=== PATIENT | female | born 1960 | race Two or more races ===

== ENCOUNTER 2017-09-11 12:27 | Emergency (ER) | payer BC ==
[2017-09-11 12:31] VITALS: BMI 23.1
[2017-09-11 12:37] VITALS: BP 157/92; RESP 17; TEMP 99.1; O2SAT 98
--- NOTE | 2017-09-11 13:38 | ED PDOC ---
HPI: General Adult Time Seen by Provider: 09/11/17 12:31 Chief Complaint (Nursing): Flu-like Symptoms Chief Complaint (Provider): Flu-like Symptoms History Per: Patient History/Exam Limitations: no limitations Onset/Duration Of Symptoms: Days (x 1) Additional Complaint(s): Roxy is a 57 y/o female with a history of asthma who presents to the ED complaining of headache, body aches, sore throat, and chills since last night. Patient also complains of mild nausea but denies vomiting or diarrhea. She denies any sick contacts and states she got the flu shot this year. PMD: None Provided Past Medical History Reviewed: Historical Data, Nursing Documentation, Vital Signs Vital Signs: Last Vital Signs Temp 99.1 F 09/11/17 12:36 Pulse 99 H 09/11/17 12:36 Resp 17 09/11/17 12:36 BP 157/92 H 09/11/17 12:36 Pulse Ox 98 09/11/17 12:36 - Medical History PMH: Asthma, Diverticulitis, Gastritis, Hepatitis (autoimmune), Hiatal Hernia, Hyperthyroidism, Hypothyroidism, Pancreatitis Denies: HIV, Chronic Kidney Disease - Surgical History Surgical History: Cholecystectomy (laparoscopic cholesystectomy), Tonsillectomy - Family History Family History: States: Unknown Family Hx - Immunization History Hx Tetanus Toxoid Vaccination: Yes - Home Medications Home Medications: Ambulatory Orders Medication Instructions Recorded Montelukast Sodium [Singulair] 10 mg PO DAILY 08/25/14 Levothyroxine [Synthroid] 75 mcg PO DAILY 08/21/15 Albuterol 0.083% [Albuterol 0.083% 3 ml IH TID PRN 08/14/16 Inhal Ana (2.5 mg/3 ml) UD] Albuterol Sulfate [Proair 2 puff IH TID PRN 08/14/16 Respiclick] Dexlansoprazole [Dexilant] 60 mg PO DAILY 08/14/16 Fluticasone/Vilanterol [Breo 1 puff IH DAILY 08/14/16 Ellipta 200-25 Mcg INH] Icosapent Ethyl [Vascepa] 2 gm PO DAILY 08/14/16 Cefuroxime Axetil [Ceftin] 300 mg PO TID #0 tablet 08/19/16 Methylprednisolone [Medrol Dose 4 mg PO DAILY #21 mg 08/19/16 Pack (21 tabs)] Promethazine/Codeine 10 ml PO Q6 PRN #0 udc 08/19/16 [Phenergan/Codeine Oral Syrup] Sitagliptin Phos/Metformin HCl 1 each PO BID #0 tablet 08/19/16 [Janumet 50-1,000 mg Tablet] Theophylline Anhydrous [Mu-24] 200 mg PO DAILY #0 cap.er.24h 08/19/16 Ibuprofen [Motrin Tab] 400 mg PO Q6 PRN #12 tab 09/11/17 - Allergies Allergies/Adverse Reactions: Allergies Allergy/AdvReac Type Severity Reaction Status Date / Time ciprofloxacin [From Cipro] Allergy URTICARIA Verified 08/14/16 12:44 ciprofloxacin HCl Allergy URTICARIA Verified 08/14/16 12:44 [From Cipro] latex Allergy SHORTNESS Verified 08/14/16 12:44 OF BREATH Review of Systems ROS Statement: Except As Marked, All Systems Reviewed And Found Negative Constitutional: Positive for: Chills, Malaise ENT: Positive for: Throat Pain Gastrointestinal: Positive for: Nausea. Negative for: Vomiting, Diarrhea Neurological: Positive for: Headache Physical Exam - Reviewed Nursing Documentation Reviewed: Yes Vital Signs Reviewed: Yes - Physical Exam Appears: Positive for: Well, Non-toxic, No Acute Distress Head Exam: Positive for: ATRAUMATIC, NORMAL INSPECTION, NORMOCEPHALIC Skin: Positive for: Normal Color, Warm, Dry Eye Exam: Positive for: Normal appearance, EOMI, PERRL. Negative for: Nystagmus ENT: Positive for: Other (nasal turbinates are boggy and erythematous) Neck: Positive for: Normal, Painless ROM, Supple Cardiovascular/Chest: Positive for: Regular Rate, Rhythm. Negative for: Murmur Respiratory: Positive for: Normal Breath Sounds. Negative for: Respiratory Distress Gastrointestinal/Abdominal: Positive for: Normal Exam, Bowel Sounds, Soft. Negative for: Tenderness Back: Positive for: Normal Inspection Extremity: Positive for: Normal ROM. Negative for: Pedal Edema, Deformity Neurologic/Psych: Positive for: Alert, Oriented. Negative for: Motor/Sensory Deficits - ECG O2 Sat by Pulse Oximetry: 98 (RA) Pulse Ox Interpretation: Normal Medical Decision Making Medical Decision Making: Time: 12:31 Initial Impression: Flu-like symptoms Initial Plan: --Influenza A B --Tylenol Time: 1:30 --Flu swab is negative --Patient is stable for discharge home and will return if symptoms worsen Scribe Attestation: Documented by Ector Koo, acting as a scribe for Geovanny Reyes III, MD Provider Scribe Attestation: All medical record entries made by the Scribe were at my direction and personally dictated by me. I have reviewed the chart and agree that the record accurately reflects my personal performance of the history, physical exam, medical decision making, and the department course for this patient. I have also personally directed, reviewed, and agree with the discharge instructions and disposition. Disposition - Clinical Impression Clinical Impression: Influenza-like symptoms - Patient ED Disposition Is Patient to be Admitted: No Counseled Patient/Family Regarding: Studies Performed, Diagnosis, Need For Followup, Rx Given - Disposition Disposition: Routine/Home Disposition Time: 01:30 Condition: STABLE Additional Instructions: Drink plenty of fluids. Prescriptions: Ibuprofen [Motrin Tab] 400 mg PO Q6 PRN #12 tab PRN Reason: Fever >100.4 F Instructions: Cold Symptoms (ED) Forms: [employer] ([place]), [facility] ED School/Work Excuse
[2017-09-11 19:01] VITALS: PULSE 88
== END 2017-09-11 13:40 | disposition home or self-care (01) ==
LOC: H.ER 12:27
DX: R50.9 Fever, unspecified (principal); J00 Acute nasopharyngitis [common cold]

== ENCOUNTER 2018-02-24 16:12 | Emergency (ER) | payer OTHER ==
[2018-02-24 16:12] VITALS: BMI 23.1
[2018-02-24 16:19] VITALS: TEMP 98.3
[2018-02-24] MEDS ORDERED: Tdap Vaccine 0.5 ml Vial (10-64 yrs) IM ONE ×2 (16:40→16:52)
--- NOTE | 2018-02-24 17:35 | ED PDOC ---
HPI: Wound Care - HPI Time Seen by Provider: 02/24/18 16:31 Chief Complaint (Nursing): Needle Stick Chief Complaint (Provider): Needle Stick History Per: Patient Exam Limitations: no limitations Onset/Duration Of Symptoms: Mins Location Of Injury: Left: Hand (2nd finger) Additional Complaint(s): 57 y/o female presents to ED s/p needle stick. 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 Immediately following she bled out the wound, irrigated it, and applied dressing prior to evaluation. PMD: Mary Hair Past Medical History Reviewed: Historical Data, Nursing Documentation, Vital Signs Vital Signs: Last Vital Signs Temp 98.3 F 02/24/18 16:16 Pulse 94 H 02/24/18 16:16 Resp 18 02/24/18 16:16 BP 139/91 H 02/24/18 16:16 Pulse Ox 99 02/24/18 16:16 - Medical History PMH: Asthma, Diverticulitis, Gastritis, Hepatitis (autoimmune), Hiatal Hernia, Hyperthyroidism, Hypothyroidism, Pancreatitis Denies: HIV, Chronic Kidney Disease - Surgical History Surgical History: Cholecystectomy (laparoscopic cholesystectomy), Tonsillectomy - Family History Family History: States: Unknown Family Hx - Social History Current smoker - smoking cessation education provided: No Ex-Smoker (has not smoked in the last 12 months): No Alcohol: None Drugs: Denies - Immunization History Hx Tetanus Toxoid Vaccination: No - Home Medications Home Medications: Ambulatory Orders Medication Instructions Recorded Montelukast Sodium [Singulair] 10 mg PO DAILY 08/25/14 Levothyroxine [Synthroid] 75 mcg PO DAILY 08/21/15 Albuterol 0.083% [Albuterol 0.083% 3 ml IH TID PRN 08/14/16 Inhal Ana (2.5 mg/3 ml) UD] Albuterol Sulfate [Proair 2 puff IH TID PRN 08/14/16 Respiclick] Dexlansoprazole [Dexilant] 60 mg PO DAILY 08/14/16 Fluticasone/Vilanterol [Breo 1 puff IH DAILY 08/14/16 Ellipta 200-25 Mcg INH] Icosapent Ethyl [Vascepa] 2 gm PO DAILY 08/14/16 Cefuroxime Axetil [Ceftin] 300 mg PO TID #0 tablet 08/19/16 Methylprednisolone [Medrol Dose 4 mg PO DAILY #21 mg 08/19/16 Pack (21 tabs)] Promethazine/Codeine 10 ml PO Q6 PRN #0 udc 08/19/16 [Phenergan/Codeine Oral Syrup] Sitagliptin Phos/Metformin HCl 1 each PO BID #0 tablet 08/19/16 [Janumet 50-1,000 mg Tablet] Theophylline Anhydrous [Mu-24] 200 mg PO DAILY #0 cap.er.24h 08/19/16 Ibuprofen [Motrin Tab] 400 mg PO Q6 PRN #12 tab 09/11/17 - Allergies Allergies/Adverse Reactions: Allergies Allergy/AdvReac Type Severity Reaction Status Date / Time ciprofloxacin [From Cipro] Allergy URTICARIA Verified 08/14/16 12:44 ciprofloxacin HCl Allergy URTICARIA Verified 08/14/16 12:44 [From Cipro] latex Allergy SHORTNESS Verified 08/14/16 12:44 OF BREATH Review of Systems ROS Statement: Except As Marked, All Systems Reviewed And Found Negative Skin: Positive for: Other (needle stick to left 2nd index finger) Physical Exam - Reviewed Nursing Documentation Reviewed: Yes Vital Signs Reviewed: Yes - Physical Exam Appears: Positive for: Non-toxic, No Acute Distress Head Exam: Positive for: ATRAUMATIC, NORMAL INSPECTION, NORMOCEPHALIC Skin: Negative for: Normal Color (puncture to left anterior second digit, no active bleeding, needle stick) Eye Exam: Positive for: EOMI, Normal appearance, PERRL Neurologic/Psych: Positive for: Alert, Oriented (x3) - ECG O2 Sat by Pulse Oximetry: 99 (RA) Pulse Ox Interpretation: Normal Medical Decision Making Medical Decision Making: Time: 16:16 Impression: Needle stick Initial Plan: * At the source HIV and hepatitis testing * Tetanus Shot Scribe Attestation: Documented by Roxane Joseph acting as a scribe Rae Parra MD. MD [place] Attestation: All medical record entries made by the Scribe were at my direction and personally dictated by me. I have reviewed the chart and agree that the record accurately reflects my personal performance of the history, physical exam, medical decision making, and the department course for this patient. I have also personally directed, reviewed, and agree with the discharge instructions and disposition. Disposition - Disposition
[2018-02-24 17:53] VITALS: PULSE 88; RESP 16; O2SAT 98
[2018-02-24 18:36] VITALS: BP 133/80
== END 2018-02-24 17:53 | disposition home or self-care (01) ==
LOC: H.ER 16:12
DX: S61.231A Puncture wound without foreign body of left index finger without damage to nail, initial encounter (principal); X58.XXXA Exposure to other specified factors, initial encounter; Y99.0 Civilian activity done for income or pay; Z87.891 Personal history of nicotine dependence; J45.909 Unspecified asthma, uncomplicated; E03.9 Hypothyroidism, unspecified; E05.90 Thyrotoxicosis, unspecified without thyrotoxic crisis or storm; Z23 Encounter for immunization; Z04.8 Encounter for examination and observation for other specified reasons

== ENCOUNTER 2018-07-11 21:50 | Emergency (ER) | payer BC, OTHER ==
[2018-07-11 21:51] VITALS: BMI 23.1
[2018-07-11 21:58] VITALS: O2SAT 100
[2018-07-11] MEDS ORDERED: DiphenhydrAMINE 50 mg/ml Inj IVP STA (22:00)
[2018-07-11] MEDS ORDERED: Sodium Chloride 0.9% 1,000 ML IV STA (22:01)
[2018-07-11] MEDS ORDERED: Promethazine 25 MG in Sodium Chloride 0.9% 50 ML IVPB STA (22:05)
--- NOTE | 2018-07-11 22:13 | ED PDOC ---
HPI: Headache Chief Complaint (Provider): MCKEON History Per: Patient History/Exam Limitations: no limitations Additional Complaint(s): Pt reports gradual onset posterior MCKEON X 1.5 hours, associated with nausea and 3 episodes of vomiting, + photophobia. Feels like typical migraine. Denies fever, neck stiffness, visual changes. - Risk Factors SAH Risk Factors: Neg: Sudden Onset Of Pain, Worst Headache Of Life <FidelLenchoa Suzie - Last Filed: 07/11/18 22:11> <Ho Cunha - Last Filed: 07/12/18 06:26> Time Seen by Provider: 07/11/18 21:59 Chief Complaint (Nursing): Headache Past Medical History Reviewed: Nursing Documentation, Vital Signs Vital Signs: Last Vital Signs Temp 98.7 F 07/11/18 21:55 Pulse 85 07/11/18 21:55 Resp 16 07/11/18 21:55 BP 150/78 07/11/18 21:55 Pulse Ox 100 07/11/18 21:55 - Medical History PMH: Asthma, Diverticulitis, Gastritis, Hepatitis (autoimmune), Hiatal Hernia, Hyperthyroidism, Hypothyroidism, Pancreatitis Denies: HIV, Chronic Kidney Disease - Surgical History Surgical History: Cholecystectomy (laparoscopic cholesystectomy), Tonsillectomy - Family History Family History: States: Unknown Family Hx - Social History Current smoker - smoking cessation education provided: No Alcohol: None - Immunization History Hx Tetanus Toxoid Vaccination: No <Parra,Rae Suzie - Last Filed: 07/11/18 22:11> Vital Signs: Last Vital Signs Temp 98.7 F 07/11/18 21:55 Pulse 58 L 07/12/18 05:25 Resp 18 07/12/18 05:25 BP 139/71 07/12/18 05:25 Pulse Ox 100 07/12/18 05:25 <Ho Cunha - Last Filed: 07/12/18 06:26> - Home Medications Home Medications: Ambulatory Orders Medication Instructions Recorded Montelukast Sodium [Singulair] 10 mg PO DAILY 08/25/14 Levothyroxine [Synthroid] 75 mcg PO DAILY 08/21/15 Albuterol 0.083% [Albuterol 0.083% 3 ml IH TID PRN 08/14/16 Inhal Ana (2.5 mg/3 ml) UD] Albuterol Sulfate [Proair 2 puff IH TID PRN 08/14/16 Respiclick] Dexlansoprazole [Dexilant] 60 mg PO DAILY 08/14/16 Fluticasone/Vilanterol [Breo 1 puff IH DAILY 08/14/16 Ellipta 200-25 Mcg INH] Icosapent Ethyl [Vascepa] 2 gm PO DAILY 08/14/16 Cefuroxime Axetil [Ceftin] 300 mg PO TID #0 tablet 08/19/16 Methylprednisolone [Medrol Dose 4 mg PO DAILY #21 mg 08/19/16 Pack (21 tabs)] Promethazine/Codeine 10 ml PO Q6 PRN #0 udc 08/19/16 [Phenergan/Codeine Oral Syrup] Sitagliptin Phos/Metformin HCl 1 each PO BID #0 tablet 08/19/16 [Janumet 50-1,000 mg Tablet] Theophylline Anhydrous [Mu-24] 200 mg PO DAILY #0 cap.er.24h 08/19/16 Ibuprofen [Motrin Tab] 400 mg PO Q6 PRN #12 tab 09/11/17 - Allergies Allergies/Adverse Reactions: Allergies Allergy/AdvReac Type Severity Reaction Status Date / Time ciprofloxacin [From Cipro] Allergy URTICARIA Verified 07/11/18 21:54 ciprofloxacin HCl Allergy URTICARIA Verified 07/11/18 21:54 [From Cipro] latex Allergy SHORTNESS Verified 07/11/18 21:54 OF BREATH Review of Systems ROS Statement: Except As Marked, All Systems Reviewed And Found Negative Eyes: Positive for: Other (Photophobia) Gastrointestinal: Positive for: Nausea, Vomiting Neurological: Positive for: Headache <Rae Parra F - Last Filed: 07/11/18 22:11> Physical Exam - Reviewed Nursing Documentation Reviewed: Yes Vital Signs Reviewed: Yes - Physical Exam Appears: Positive for: Uncomfortable Head Exam: Positive for: ATRAUMATIC, NORMAL INSPECTION Skin: Positive for: Normal Color, Warm, Dry Eye Exam: Positive for: Normal appearance, EOMI, PERRL Neck: Positive for: Normal, Painless ROM, Supple Cardiovascular/Chest: Positive for: Regular Rate, Rhythm Respiratory: Positive for: Normal Breath Sounds Neurologic/Psych: Positive for: Alert, instructional technology teacher II-XII, Oriented, Gait (Steady). Negative for: Motor/Sensory Deficits, Aphasia, Facial Droop <Rae Parra - Last Filed: 07/11/18 22:11> - ECG O2 Sat by Pulse Oximetry: 100 <Rae Parra - Last Filed: 07/11/18 22:11> - Laboratory Results Result Diagrams: 07/11/18 22:05 07/11/18 22:05 - Progress Re-evaluation Time: 06:26 Condition: Re-examined, Improved <Ho Cunha - Last Filed: 07/12/18 06:26> Medical Decision Making Medical Decision Makin yo female with MCKEON. - labs - CT head - IVF - Phenergan - Benadryl <Rae Parra - Last Filed: 07/11/18 22:11> Disposition <Rae Parra - Last Filed: 07/11/18 22:11> - Patient ED Disposition Is Patient to be Admitted: No Doctor Will See Patient In The: Office Counseled Patient/Family Regarding: Studies Performed, Diagnosis, Need For Followup <Ho Cunha - Last Filed: 07/12/18 06:26> - Clinical Impression Clinical Impression: Headache - Disposition Forms: [employer] ([place])
[2018-07-11] MEDS ORDERED: DiphenhydrAMINE 50 mg/ml Inj ONE (22:15)
[2018-07-11 22:20] LABS: BASO # 0.1 K/uL (0.0-0.2); BASO % 0.8 % (0.0-2.0); EOS # 0.3 K/uL (0.0-0.7); EOS % 3.9 % (0.0-4.0); HEMOGLOBIN 13.5 g/dL (12.0-16.0); LYMPH # 4.7 K/uL (1.0-4.3); LYMPH % 62.5 % (20.0-40.0); MEAN CELL VOLUME 89.1 fl (81.0-99.0); MEAN CORPUSCULAR HEMOGLOBIN 29.6 pg (27.0-31.0); MEAN CORPUSCULAR HGB CONC 33.2 g/dL (33.0-37.0); MEAN PLATELET VOLUME 8.6 fl (7.2-11.7); MONO # 0.6 K/uL (0.0-0.8); MONO % 7.5 % (0.0-10.0); NEUT # 1.9 K/uL (1.8-7.0); NEUT % 25.3 % (50.0-75.0); NRBC % 0.1 % (0.0-0.0); RBC 4.56 Mil/uL (3.80-5.20); RED CELL DISTRIBUTION WIDTH 13.9 % (11.5-14.5); WHITE BLOOD COUNT 7.5 K/uL (4.8-10.8)
[2018-07-11 22:26] LABS: ALB/GLOB RATIO 1.1 (1.0-2.1); ALBUMIN 4.2 g/dL (3.5-5.0); ALT/SGPT 49 U/L (9-52); AST/SGOT 39 U/L (14-36); BLOOD UREA NITROGEN 14 mg/dl (7-17); CALCIUM 9.3 mg/dL (8.4-10.2); GFR NON-AFRICAN AMERICAN > 60
[2018-07-12 05:25] VITALS: RESP 18
--- NOTE | 2018-07-12 06:46 | ED PDOC ---
- Laboratory Results Result Diagrams: 07/11/18 22:05 07/11/18 22:05 - ECG O2 Sat by Pulse Oximetry: 100 - Progress Re-evaluation Time: 03:00 Condition: Re-examined, Improved Medical Decision Making Medical Decision Making: Assumed care from Dr Parra at 0000. Disposition - Clinical Impression Clinical Impression: Headache, Migraine - POA Present On Arrival: None - Disposition Referrals: Perry Hernandez MD [Staff Provider] - Disposition: Routine/Home Disposition Time: 03:00 Condition: IMPROVED Additional Instructions: JAROD CASTILLO, thank you for letting us take care of you today. Your provider was Ho Cunha MD and you were treated for HEADACHE,VOMITING. The emergency medical care you received today was directed at your acute symptoms. If you were prescribed any medication, please fill it and take as directed. It may take several days for your symptoms to resolve. Return to the Emergency Department if your symptoms worsen, do not improve, or if you have any other problems. Please contact your doctor or call one of the physicians/clinics you have been referred to that are listed on the Patient Visit Information form that is included in your discharge packet. Bring any paperwork you were given at discharge with you along with any medications you are taking to your follow up visit. Our treatment cannot replace ongoing medical care by a primary care provider outside of the emergency department. Thank you for allowing the [facility] team to be part of your care today. If you had an X-Ray or CT scan: A Radiologist will review the ED reading if any change in treatment is needed we will contact you. If you had a blood, urine, or wound culture: It will take several days for the results, if any change in treatment is needed we will contact you. If you had an STI test: It will take 48 hours for the results. Please call after 1 week if you have not heard back. Instructions: Headache, Adult
[2018-07-12 06:55] VITALS: BP 139/87; PULSE 73; TEMP 98.6
--- NOTE | 2018-07-12 12:19 | CT ---
Date of service: 07/11/2018 PROCEDURE: CT HEAD WITHOUT CONTRAST. HISTORY: MCKEON COMPARISON: None available. TECHNIQUE: Axial computed tomography images were obtained through the head/brain without intravenous contrast. Radiation dose: Total exam DLP = 732.56 mGy-cm. This CT exam was performed using one or more of the following dose reduction techniques: Automated exposure control, adjustment of the mA and/or kV according to patient size, and/or use of iterative reconstruction technique. FINDINGS: HEMORRHAGE: No intracranial hemorrhage. BRAIN: No mass effect or edema. No atrophy or chronic microvascular ischemic changes. VENTRICLES: Unremarkable. No hydrocephalus. CALVARIUM: Unremarkable. PARANASAL SINUSES: Unremarkable as visualized. No significant inflammatory changes. MASTOID AIR CELLS: Unremarkable as visualized. No inflammatory changes. OTHER FINDINGS: None. IMPRESSION: No evidence of acute intracranial hemorrhage mass effect or midline shift. Preliminary report with concordance findings was submitted by [facility] at 11:13 p.m. on 07/11/2018.
--- NOTE | 2018-07-12 17:00 | CARD ---
APPROVED REPORT Date of service: 07/12/2018 EKG Measurement Heart [id number] <Conclusion> Sinus bradycardia Otherwise normal ECG
== END 2018-07-12 07:01 | disposition home or self-care (01) ==
LOC: H.ER 21:50
DX: R51 Headache (principal)
CPT/HCPCS: 70450; 80053; 85025; 93005; 96374; J1200; J2550; J7030

== ENCOUNTER 2018-08-09 21:52 | Emergency (ER) | payer OTHER ==
[2018-08-09 21:52] VITALS: BMI 23.1
[2018-08-09] MEDS ORDERED: Albuterol-Ipratrop 3 mg / 0.5 (3 ml) UD INH STA (22:04)
[2018-08-09] MEDS ORDERED: Albuterol-Ipratrop 3 mg / 0.5 (3 ml) UD ONE (22:18)
--- NOTE | 2018-08-09 23:30 | ED PDOC ---
HPI: SOB/CHF/COPD Time Seen by Provider: 08/09/18 21:58 Chief Complaint (Nursing): Shortness Of Breath Chief Complaint (Provider): cough and asthma exacerbation History Per: Patient History/Exam Limitations: no limitations Onset/Duration Of Symptoms: Days (x1 week) Current Symptoms Are (Timing): Still Present Associated Symptoms: denies: Fever, Chills Additional Complaint(s): Roxy Lock is a 58 year old female, with a past medical history of cholangitis, Omar's disease and asthma, who presents to the emergency department complaining of cough and asthma exacerbation onset for x1 week. Patient states symptoms started after getting the flu shot. She reports symptoms worsen at night with spams of cough. She denies any fever or chills. No further medical complaints. PMD: Perry Hernandez Past Medical History Reviewed: Historical Data, Nursing Documentation, Vital Signs Vital Signs: Last Vital Signs Temp 97.9 F 08/09/18 21:59 Pulse 86 08/09/18 21:59 Resp 18 08/09/18 22:03 BP 161/88 H 08/09/18 21:59 Pulse Ox 100 08/09/18 21:59 - Medical History PMH: Asthma, Diverticulitis, Gastritis, Hepatitis (autoimmune), Hiatal Hernia, Hyperthyroidism, Hypothyroidism, Pancreatitis Denies: HIV, Chronic Kidney Disease Other PMH: Cholangitis - Surgical History Surgical History: Cholecystectomy (laparoscopic cholesystectomy), Tonsillectomy - Family History Family History: States: Unknown Family Hx - Social History Current smoker - smoking cessation education provided: No Alcohol: None Drugs: Denies - Immunization History Hx Tetanus Toxoid Vaccination: No - Home Medications Home Medications: Ambulatory Orders Medication Instructions Recorded RX: Montelukast Sodium [Singulair] 10 mg PO DAILY 08/25/14 RX: Levothyroxine [Synthroid] 75 mcg PO DAILY 08/21/15 RX: Albuterol 0.083% [Albuterol 3 ml IH TID PRN 08/14/16 0.083% Inhal Ana (2.5 mg/3 ml) UD] RX: Albuterol Sulfate [Proair 2 puff IH TID PRN 08/14/16 Respiclick] RX: Dexlansoprazole [Dexilant] 60 mg PO DAILY 08/14/16 RX: Fluticasone/Vilanterol [Breo 1 puff IH DAILY 08/14/16 Ellipta 200-25 Mcg INH] RX: Icosapent Ethyl [Vascepa] 2 gm PO DAILY 08/14/16 Cefuroxime Axetil [Ceftin] 300 mg PO TID #0 tablet 08/19/16 Methylprednisolone [Medrol Dose 4 mg PO DAILY #21 mg 08/19/16 Pack (21 tabs)] RX: Promethazine/Codeine 10 ml PO Q6 PRN #0 udc 08/19/16 [Phenergan/Codeine Oral Syrup] RX: Theophylline Anhydrous 200 mg PO DAILY #0 cap.er.24h 08/19/16 [Mu-24] Sitagliptin Phos/Metformin HCl 1 each PO BID #0 tablet 08/19/16 [Janumet 50-1,000 mg Tablet] RX: Ibuprofen [Motrin Tab] 400 mg PO Q6 PRN #12 tab 09/11/17 predniSONE [Prednisone] 40 mg PO DAILY #8 tab 08/09/18 - Allergies Allergies/Adverse Reactions: Allergies Allergy/AdvReac Type Severity Reaction Status Date / Time ciprofloxacin [From Cipro] Allergy URTICARIA Verified 07/11/18 21:54 ciprofloxacin HCl Allergy URTICARIA Verified 07/11/18 21:54 [From Cipro] latex Allergy SHORTNESS Verified 07/11/18 21:54 OF BREATH Review of Systems ROS Statement: Except As Marked, All Systems Reviewed And Found Negative Constitutional: Negative for: Fever, Chills Respiratory: Positive for: Cough, Shortness of Breath Physical Exam - Reviewed Nursing Documentation Reviewed: Yes Vital Signs Reviewed: Yes - Physical Exam Appears: Positive for: No Acute Distress Head Exam: Positive for: ATRAUMATIC, NORMAL INSPECTION, NORMOCEPHALIC Skin: Positive for: Normal Color, Warm, Dry Eye Exam: Positive for: Normal appearance, EOMI, PERRL ENT: Positive for: Normal ENT Inspection Neck: Positive for: Normal, Painless ROM Cardiovascular/Chest: Positive for: Regular Rate, Rhythm. Negative for: Murmur Respiratory: Positive for: Normal Breath Sounds. Negative for: Accessory Muscle Use, Wheezing, Respiratory Distress Gastrointestinal/Abdominal: Positive for: Normal Exam, Soft. Negative for: Tenderness, Guarding, Rebound Back: Positive for: Normal Inspection. Negative for: L CVA Tenderness, R CVA Tenderness, Vertebral Tenderness Extremity: Positive for: Normal ROM (upper and lower extremities). Negative for: Deformity, Swelling Neurologic/Psych: Positive for: Alert, Oriented - ECG O2 Sat by Pulse Oximetry: 100 (RA) Pulse Ox Interpretation: Normal Medical Decision Making Medical Decision Making: Time: 21:58 Initial Impression: Asthma exacerbation Initial Plan: --Duoneb 3ml INH --Solu-medrol 125 mg IVP --Reevaluation 23:31 -Upon provider reevaluation patient is feeling better, coughing less, is medically stable, and requires no further treatment in the ED at this time. Patient will be discharged home. Counseling was provided and all questions were answered regarding diagnosis. There is agreement to discharge plan. Return if symptoms persist or worsen. ----- Scribe Attestation: Documented by Stephen Garza, acting as a scribe for Shahab Chung MD. Provider Scribe Attestation: All medical record entries made by the Scribe were at my direction and personally dictated by me. I have reviewed the chart and agree that the record accurately reflects my personal performance of the history, physical exam, medical decision making, and the department course for this patient. I have also personally directed, reviewed, and agree with the discharge instructions and disposition. Disposition - Clinical Impression Clinical Impression: Asthma attack - Patient ED Disposition Is Patient to be Admitted: No Counseled Patient/Family Regarding: Studies Performed, Diagnosis, Need For Followup - Disposition Disposition: Routine/Home Disposition Time: 23:15 Condition: IMPROVED Additional Instructions: follow up with Dr Hernandez in 1-2 days return to the ED with any worsening or concerning symptoms Prescriptions: predniSONE [Prednisone] 40 mg PO DAILY #8 tab Instructions: Asthma, Adult (DC) Forms: [employer] ([place])
[2018-08-09 23:50] VITALS: BP 153/89; PULSE 87; RESP 17; TEMP 98.4
[2018-08-12 10:54] VITALS: O2SAT 100
== END 2018-08-09 23:50 | disposition home or self-care (01) ==
LOC: H.ER 21:52
DX: J45.901 Unspecified asthma with (acute) exacerbation (principal)

== ENCOUNTER 2018-10-06 09:20 | Inpatient (IN) | payer OTHER ==
[2018-10-06 09:20] VITALS: BMI 23.1
[2018-10-06] MEDS ORDERED: Albuterol 0.083% Inhal Sol (2.5 mg/3 mL) UD ONE ×2 (09:33→09:54)
[2018-10-06] MEDS ORDERED: Magnesium Sulfate 2 gm/50 ml 2 GM/50 ML BAG IVPB ONE (09:33)
[2018-10-06] MEDS ORDERED: Albuterol-Ipratrop 3 mg / 0.5 (3 ml) UD IH STA ×2 (09:33→09:34)
[2018-10-06] MEDS ORDERED: Sodium Chloride 0.9% 1,000 ML IV STA ×2 (09:34→11:44)
--- NOTE | 2018-10-06 09:36 | ED PDOC ---
HPI: Influenza Time Seen by Provider: 10/06/18 09:24 History Per: Patient Onset/Duration Of Symptoms: Days (3) Symptoms include: fever, cough Additional complaint(s):: SOB, wheezing, cough productive yellow sputum assoc with fever. No improvement with home nebulizers, and prednisone. Past Medical History Vital Signs: Last Vital Signs Temp 100.1 F H 10/06/18 09:27 Pulse 136 H 10/06/18 09:27 Resp 20 10/06/18 09:27 BP 147/83 10/06/18 09:27 Pulse Ox 98 10/06/18 09:27 - Medical History PMH: Asthma, Diverticulitis, Gastritis, Hepatitis (autoimmune), Hiatal Hernia, Hyperthyroidism, Hypothyroidism, Pancreatitis Denies: HIV, Chronic Kidney Disease - Surgical History Surgical History: Cholecystectomy (laparoscopic cholesystectomy), Tonsillectomy - Family History Family History: States: Unknown Family Hx - Immunization History Hx Tetanus Toxoid Vaccination: No - Home Medications Home Medications: Ambulatory Orders Medication Instructions Recorded Montelukast Sodium [Singulair] 10 mg PO HS 08/25/14 Levothyroxine [Synthroid] 75 mcg PO DAILY 08/21/15 Albuterol 0.083% [Albuterol 0.083% 3 ml IH Q8 PRN 08/14/16 Inhal Ana (2.5 mg/3 ml) UD] Icosapent Ethyl [Vascepa] 1 gm PO Q12 08/14/16 Fluticasone/Vilanterol 200/25 1 puff IH DAILY 10/06/18 [Breo Ellipta 200-25 Mcg INH] Levalbuterol Tartrate [Xopenex Hfa] 2 puff IH Q6 PRN 10/06/18 Ursodiol [Actigall] 300 mg PO TID 10/06/18 predniSONE [Prednisone] 40 mg PO ASDIR 10/06/18 - Allergies Allergies/Adverse Reactions: Allergies Allergy/AdvReac Type Severity Reaction Status Date / Time ciprofloxacin [From Cipro] Allergy URTICARIA Verified 07/11/18 21:54 ciprofloxacin HCl Allergy URTICARIA Verified 07/11/18 21:54 [From Cipro] latex Allergy SHORTNESS Verified 07/11/18 21:54 OF BREATH Review of Systems ROS Statement: Except As Marked, All Systems Reviewed And Found Negative Constitutional: Positive for: Fever Respiratory: Positive for: Cough, Shortness of Breath, Sputum Physical Exam - Reviewed Nursing Documentation Reviewed: Yes Vital Signs Reviewed: Yes - Physical Exam Appears: Positive for: Non-toxic, Uncomfortable Head Exam: Positive for: ATRAUMATIC, NORMAL INSPECTION, NORMOCEPHALIC Skin: Positive for: Normal Color, Warm, DRY Eye Exam: Positive for: EOMI, Normal appearance, PERRL ENT: Positive for: Normal ENT Inspection Neck: Positive for: Normal, Painless ROM Cardiovascular/Chest: Positive for: Regular Rate, Rhythm, Tachycardia Respiratory: Positive for: Rhonchi, Wheezing, Respiratory Distress (mild) Gastrointestinal/Abdominal: Positive for: Normal Exam, Soft Back: Positive for: Normal Inspection Extremity: Positive for: Normal ROM Neurologic/Psych: Positive for: Alert, Oriented - Laboratory Results Result Diagrams: 10/06/18 10:15 10/06/18 10:15 - ECG O2 Sat by Pulse Oximetry: 98 Disposition - Clinical Impression Clinical Impression: Asthma attack, Failure of outpatient treatment, Pneumonia, Sepsis - Patient ED Disposition Is Patient to be Admitted: Yes - Disposition Disposition Time: 09:38 Condition: FAIR - Pt Status Changed To: Hospital Disposition Of: Inpatient - Admit Certification Admit to Inpatient:: After my assessment, the patient will require hospitalization for at least two midnights. This is because of the severity of symptoms shown, intensity of services needed, and/or the medical risk in this patient being treated as an outpatient. - POA Present On Arrival: None
[2018-10-06] MEDS ORDERED: Piperacillin/Tazobact 3.375 GM in Sodium Chloride 0.9% 100 ML IVPB STA (09:54)
[2018-10-06] MEDS ORDERED: Magnesium Sulfate 2 gm/50 ml 2 GM/50 ML BAG ONE (09:55)
--- NOTE | 2018-10-06 10:13 | RAD ---
Date of service: 10/06/2018 HISTORY: cough COMPARISON: Chest radiographs 08/19/2016 FINDINGS: LUNGS: Minimal patchy density is question at the medial right base and may indicate early infiltrate here. Remaining lung knight are clear otherwise. PLEURA: No significant pleural effusion identified, no pneumothorax apparent. CARDIOVASCULAR: Calcific atherosclerotic changes are seen related to the thoracic aorta. Normal cardiac size. No pulmonary vascular congestion. OSSEOUS STRUCTURES: No significant abnormalities. VISUALIZED UPPER ABDOMEN: Surgical clips identified right upper quadrant abdomen. OTHER FINDINGS: None. IMPRESSION: Borderline right medial basilar infiltrate or atelectasis. Remaining lung knight are clear. No pulmonary vascular congestion.
[2018-10-06] MEDS ORDERED: Piperacillin/Tazobact 3.375 gm Inj IVPB ONE (10:33)
[2018-10-06] MEDS ORDERED: Vancomycin 1 g Inj ONE (10:33)
[2018-10-06 10:48] LABS: BASO % 0.2 % (0.0-2.0); EOS % 0.2 % (0.0-4.0); HEMOGLOBIN 14.4 g/dL (12.0-16.0); LYMPH # 3.4 K/uL (1.0-4.3); LYMPH % 30.1 % (20.0-40.0); MEAN CELL VOLUME 89.8 fl (81.0-99.0); MEAN CORPUSCULAR HEMOGLOBIN 29.4 pg (27.0-31.0); MEAN CORPUSCULAR HGB CONC 32.7 g/dL (33.0-37.0); MEAN PLATELET VOLUME 8.4 fl (7.2-11.7); MONO # 0.9 K/uL (0.0-0.8); MONO % 8.1 % (0.0-10.0); NEUT # 6.9 K/uL (1.8-7.0); NEUT % 61.4 % (50.0-75.0); RBC 4.89 Mil/uL (3.80-5.20); RED CELL DISTRIBUTION WIDTH 14.5 % (11.5-14.5); WHITE BLOOD COUNT 11.3 K/uL (4.8-10.8)
[2018-10-06 10:53] LABS: ALB/GLOB RATIO 1.2 (1.0-2.1); ALBUMIN 4.4 g/dL (3.5-5.0); ALT/SGPT 44 U/L (9-52); AST/SGOT 44 U/L (14-36); BLOOD UREA NITROGEN 13 mg/dl (7-17); CALCIUM 9.5 mg/dL (8.4-10.2); GFR NON-AFRICAN AMERICAN > 60
[2018-10-06] MEDS ORDERED: Potassium CL 10 MEQ/50 ML 100 ML IVPB ONE (11:07)
[2018-10-06] MEDS ORDERED: Potassium CL 10 MEQ/50 ML 100 ML ONE (11:17)
[2018-10-06] MEDS: Potassium CL 10 MEQ/50 ML 50 ML IVPB SCH ×2 (11:18→13:37)
[2018-10-06 12:06] LABS: VENOUS BLOOD GAS BASE EXCESS 1.9 mmol/L (0.0-2.0); VENOUS BLOOD GAS PCO2 36 mmHg (40-60); VENOUS BLOOD GAS PO2 31 mm/Hg (30-55); VENOUS BLOOD PH 7.46 (7.32-7.43)
[2018-10-06] MEDS ORDERED: Sodium Chloride 0.9% 50 ML IV ONE (12:09)
[2018-10-06] MEDS ORDERED: Iodixanol 320 MG/ML 100 ML BOTTLE IV ONE (12:09)
--- NOTE | 2018-10-06 13:23 | CT ---
Date of service: 10/06/2018 PROCEDURE: CT Chest with contrast (Pulmonary Angiogram) HISTORY: Chest pain COMPARISON: None available. TECHNIQUE: Axial computed tomography images were obtained of the chest in the pulmonary arterial phase of enhancement. Coronal and sagittal reformatted images were created and reviewed. Intravenous contrast dose: Approximately 75 cc Visipaque 320 contrast material Radiation dose: Total exam DLP = 216.21 mGy-cm. This CT exam was performed using one or more of the following dose reduction techniques: Automated exposure control, adjustment of the mA and/or kV according to patient size, and/or use of iterative reconstruction technique. FINDINGS: Note that the examination is somewhat limited due to suboptimal opacification of the pulmonary arteries felt to be secondary to mismatched image acquisition and contrast injection timing. PULMONARY ARTERIES: Pulmonary trunk, right and left main, lobar, segmental and subsegmental branches of the pulmonary arteries are relatively well opacified with no definitive filling defects seen to suggest acute central pulmonary embolus. Pulmonary trunk measures approximately 2.7 cm. AORTA: No acute findings. No thoracic aortic aneurysm. Ascending thoracic aorta measures approximately 3.6 cm and descending thoracic aorta measures approximately 2.1 cm. Minor aortic atherosclerotic calcification or mural plaque present. LUNGS: Minor nodular scarring changes seen in the right posteromedial lung base, right middle lobe as well as the left posterior sulcus and left anterior upper lobe. The... PLEURAL SPACES: Unremarkable. No effusion or pneumothorax. HEART: Heart size within range of normal. No significant pericardial effusion.. No cardiomegaly. No significant pericardial effusion. LYMPH NODES: No significant mediastinal lymphadenopathy. There appears to be a small right hilar lymph node measuring approximately 8 mm. Trachea midline and patent with no large central endoluminal lesions. There is a small hiatal hernia. BONES, CHEST WALL: Minor multilevel degenerative spondylosis of the thoracic spine. There slight dextroscoliosis; rule out on spasm or changes related to patient positioning. OTHER FINDINGS: The slightly prominent appearing left lobe thyroid gland compared to the right side. Consider follow-up thyroid ultrasound if indicated. Cholecystectomy. Small approximately 13 mm cyst posterior cortex upper pole right kidney. IMPRESSION: No evidence of acute central pulmonary embolus. Prominent right lobe thyroid gland; consider follow-up thyroid ultrasound. Mild scattered scarring changes seen both lower lung knight including the lingular and middle lobe regions.
--- NOTE | 2018-10-06 13:46 | CP.CCUPN ---
CCU Subjective - Physician Review Events Since Last Encounter (Free Text): 10/06/18 17:22 The patient was Seen/interviewed and examined by me at the bedside during ICU round, Medical records reviewed and Management issues were discussed and formulated with the house staff. Events reviewed 58 Years old Female with PMHx of Asthma, Diverticulitis, Gastritis, Hiatal Hernia, Hyperthyroidism, Hypothyroidism, Pancreatitis and Hepatitis (autoimmune) Who presented to the Emergency department with worsening SOB, wheezing and cough productive yellow sputum In ER she has fever of 100.1 Blood S/C sent in ER and Code sepsis was called Patint used her home nebulizers and prednisone, but no improvement so she came to ER Received IV Solumedrol, IV Antibiotics for possible RLL infilterate Blood pressure dropped to 70/40, responded to IV fluid bolus 30 ml/kg, BP up to 102/60. CT angiogram negative for acute PE CCU Objective - Vital Signs / Intake & Output Vital Signs (Last 4 hours): Vital Signs Temp Pulse Resp BP Pulse Ox 10/06/18 11:55 98.6 F 86 18 109/70 100 10/06/18 11:38 16 10/06/18 11:35 52 L 12 72/30 L 99 10/06/18 11:17 98 10/06/18 10:38 110 H 25 H 132/85 100 10/06/18 10:00 121 H 18 Intake and Output (Last 8hrs): Intake & Output 10/05/18 10/06/18 10/06/18 22:59 06:59 14:59 Weight 138 lb - Physical Exam Head: Positive for: Atraumatic, Normocephalic Pupils: Positive for: PERRL Extroacular Muscles: Positive for: EOMI Conjunctiva: Positive for: Normal Mouth: Positive for: Moist Mucous Membranes Nose (Internal): Positive for: Normal Inspection Neck: Positive for: Normal Range of Motion, Trachea Midline. Negative for: Meningeal Signs, MIDLINE TENDERNESS, Paraspinal Tenderness, JVD, Lymphadenopathy, Bruit, Other Respiratory/Chest: Positive for: Accessory Muscle Use, Wheezes, Decreased Breath Sounds. Negative for: Clear to Auscultation, Good Air Exchange, Respiratory Distress, Rales, Retracting, Rhonchi Cardiovascular: Positive for: Normal S1, S2, Peripheal Pulses Present. Negative for: Regular Rate and Rhythm, Tachycardic, Bradycardic Abdomen: Positive for: Normal Bowel Sounds. Negative for: Tenderness, Distention Upper Extremity: Positive for: Normal Inspection. Negative for: Cyanosis, Edema Lower Extremity: Positive for: Normal Inspection. Negative for: Edema, CALF TENDERNESS Neurological: Positive for: GCS=15, CN II-XII Intact, Speech Normal, Motor Func Grossly Intact, Normal Sensory Function Psychiatric: Positive for: Alert, Oriented x 3, Normal Concentration, Normal Affect - Medications Active Medications: Active Medications Generic Name Dose Route Start Last Admin Trade Name Freq PRN Reason Stop Dose Admin Sodium Chloride 1,000 mls @ 100 mls/hr 10/06/18 09:34 10/06/18 10:00 Sodium Chloride 0.9% IV 10/06/18 19:33 100 mls/hr .Q10H STA Administration Oseltamivir Phosphate 75 mg 10/07/18 09:00 Tamiflu Cap PO DAILY HAYDEN Protocol - Patient Studies Lab Studies: Lab Studies 10/06/18 10/06/18 10/06/18 Range/Units 10:20 10:15 10:15 WBC 11.3 H (4.8-10.8) K/uL RBC 4.89 (3.80-5.20) Mil/uL Hgb 14.4 (12.0-16.0) g/dL Hct 43.9 (34.0-47.0) % MCV 89.8 (81.0-99.0) fl MCH 29.4 (27.0-31.0) pg MCHC 32.7 L (33.0-37.0) g/dL RDW 14.5 (11.5-14.5) % Plt Count 302 (130-400) K/uL MPV 8.4 (7.2-11.7) fl Neut % (Auto) 61.4 (50.0-75.0) % Lymph % (Auto) 30.1 (20.0-40.0) % [place] % (Auto) 8.1 (0.0-10.0) % Eos % (Auto) 0.2 (0.0-4.0) % Baso % (Auto) 0.2 (0.0-2.0) % Neut # (Auto) 6.9 (1.8-7.0) K/uL Lymph # (Auto) 3.4 (1.0-4.3) K/uL [place] # (Auto) 0.9 H (0.0-0.8) K/uL Eos # (Auto) 0.0 (0.0-0.7) K/uL Baso # (Auto) 0.0 (0.0-0.2) K/uL pO2 (30-55) mm/Hg VBG pH (7.32-7.43) VBG pCO2 (40-60) mmHg VBG HCO3 mmol/L VBG Total CO2 (22-28) mmol/L VBG O2 Sat (Calc) (40-65) % VBG Base Excess (0.0-2.0) mmol/L VBG Potassium (3.6-5.2) mmol/L Sodium 141 (132-148) mmol/L Chloride 101 (98-107) mmol/L Glucose (65-105) mg/dL Lactate (0.7-2.1) mmol/L FiO2 % Potassium 2.9 L (3.6-5.0) MMOL/L Carbon Dioxide 30 (22-30) mmol/L Anion Gap 13 (10-20) BUN 13 (7-17) mg/dl Creatinine 0.7 (0.7-1.2) mg/dl Est GFR ( Amer) > 60 Est GFR (Non-Af Amer) > 60 Random Glucose 102 (65-105) mg/dL Calcium 9.5 (8.4-10.2) mg/dL Magnesium 1.9 (1.6-2.3) MG/DL Total Bilirubin 0.9 (0.2-1.3) mg/dl AST 44 H D (14-36) U/L ALT 44 (9-52) U/L Alkaline Phosphatase 110 (38-126) U/L Total Protein 8.0 (6.3-8.2) G/DL Albumin 4.4 (3.5-5.0) g/dL Globulin 3.7 (2.2-3.9) gm/dL Albumin/Globulin Ratio 1.2 (1.0-2.1) Venous Blood Potassium (3.6-5.2) mmol/L Influenza Typ A,B (EIA) Negative for flu a/b (NEGATIVE) 10/06/18 Range/Units 09:31 WBC (4.8-10.8) K/uL RBC (3.80-5.20) Mil/uL Hgb (12.0-16.0) g/dL Hct (34.0-47.0) % MCV (81.0-99.0) fl MCH (27.0-31.0) pg MCHC (33.0-37.0) g/dL RDW (11.5-14.5) % Plt Count (130-400) K/uL MPV (7.2-11.7) fl Neut % (Auto) (50.0-75.0) % Lymph % (Auto) (20.0-40.0) % [place] % (Auto) (0.0-10.0) % Eos % (Auto) (0.0-4.0) % Baso % (Auto) (0.0-2.0) % Neut # (Auto) (1.8-7.0) K/uL Lymph # (Auto) (1.0-4.3) K/uL [place] # (Auto) (0.0-0.8) K/uL Eos # (Auto) (0.0-0.7) K/uL Baso # (Auto) (0.0-0.2) K/uL pO2 31 (30-55) mm/Hg VBG pH 7.46 H (7.32-7.43) VBG pCO2 36 L (40-60) mmHg VBG HCO3 25.4 mmol/L VBG Total CO2 26.7 (22-28) mmol/L VBG O2 Sat (Calc) 60.2 (40-65) % VBG Base Excess 1.9 (0.0-2.0) mmol/L VBG Potassium 2.7 L (3.6-5.2) mmol/L Sodium 139.0 (132-148) mmol/L Chloride 106.0 (98-107) mmol/L Glucose 123 H (65-105) mg/dL Lactate 2.3 H (0.7-2.1) mmol/L FiO2 70.0 % Potassium (3.6-5.0) MMOL/L Carbon Dioxide (22-30) mmol/L Anion Gap (10-20) BUN (7-17) mg/dl Creatinine (0.7-1.2) mg/dl Est GFR ( Amer) Est GFR (Non-Af Amer) Random Glucose (65-105) mg/dL Calcium (8.4-10.2) mg/dL Magnesium (1.6-2.3) MG/DL Total Bilirubin (0.2-1.3) mg/dl AST (14-36) U/L ALT (9-52) U/L Alkaline Phosphatase (38-126) U/L Total Protein (6.3-8.2) G/DL Albumin (3.5-5.0) g/dL Globulin (2.2-3.9) gm/dL Albumin/Globulin Ratio (1.0-2.1) Venous Blood Potassium 2.7 L (3.6-5.2) mmol/L Influenza Typ A,B (EIA) (NEGATIVE) Laboratory Results - last 24 hr 10/06/18 10/06/18 10/06/18 09:31 10:15 10:15 WBC 11.3 H RBC 4.89 Hgb 14.4 Hct 43.9 MCV 89.8 MCH 29.4 MCHC 32.7 L RDW 14.5 Plt Count 302 MPV 8.4 Neut % (Auto) 61.4 Lymph % (Auto) 30.1 [place] % (Auto) 8.1 Eos % (Auto) 0.2 Baso % (Auto) 0.2 Neut # (Auto) 6.9 Lymph # (Auto) 3.4 [place] # (Auto) 0.9 H Eos # (Auto) 0.0 Baso # (Auto) 0.0 pO2 31 VBG pH 7.46 H VBG pCO2 36 L VBG HCO3 25.4 VBG Total CO2 26.7 VBG O2 Sat (Calc) 60.2 VBG Base Excess 1.9 VBG Potassium 2.7 L Sodium 139.0 141 Chloride 106.0 101 Glucose 123 H Lactate 2.3 H FiO2 70.0 Potassium 2.9 L Carbon Dioxide 30 Anion Gap 13 BUN 13 Creatinine 0.7 Est GFR ( Amer) > 60 Est GFR (Non-Af Amer) > 60 Random Glucose 102 Calcium 9.5 Magnesium 1.9 Total Bilirubin 0.9 AST 44 H D ALT 44 Alkaline Phosphatase 110 Total Protein 8.0 Albumin 4.4 Globulin 3.7 Albumin/Globulin Ratio 1.2 Venous Blood Potassium 2.7 L Influenza Typ A,B (EIA) 10/06/18 10:20 WBC RBC Hgb Hct MCV MCH MCHC RDW Plt Count MPV Neut % (Auto) Lymph % (Auto) [place] % (Auto) Eos % (Auto) Baso % (Auto) Neut # (Auto) Lymph # (Auto) [place] # (Auto) Eos # (Auto) Baso # (Auto) pO2 VBG pH VBG pCO2 VBG HCO3 VBG Total CO2 VBG O2 Sat (Calc) VBG Base Excess VBG Potassium Sodium Chloride Glucose Lactate FiO2 Potassium Carbon Dioxide Anion Gap BUN Creatinine Est GFR ( Amer) Est GFR (Non-Af Amer) Random Glucose Calcium Magnesium Total Bilirubin AST ALT Alkaline Phosphatase Total Protein Albumin Globulin Albumin/Globulin Ratio Venous Blood Potassium Influenza Typ A,B (EIA) Negative for flu a/b Radiology Impressions: Radiology Impressions Chest X-Ray 10/06/18 09:31 IMPRESSION: Borderline right medial basilar infiltrate or atelectasis. Remaining lung knight are clear. No pulmonary vascular congestion. Chest CT 10/06/18 11:51 IMPRESSION: No evidence of acute central pulmonary embolus. Prominent right lobe thyroid gland; consider follow-up thyroid ultrasound. Mild scattered scarring changes seen both lower lung knight including the lingular and middle lobe regions. EKG/Cardiology Studies: Cardiology / EKG Studies 10/06/18 09:31 ELECTROCARDIOGRAM Stat Comment: Mode Of Transportation: Reason For Exam: sob Review of Systems - Cardiovascular Cardiovascular: absent: Chest Pain, Chest Pain at Rest, Chest Pain with Activity, Claudication, Diaphoresis - Respiratory Respiratory: Cough, Dyspnea, Dyspnea on Exertion, Wheezing, Excessive Mucous Production. absent: Hemoptysis, Snoring, Stridor - Gastrointestinal Gastrointestinal: absent: Abdominal Pain, Heartburn, Hematemesis, Hematochezia Critical Care Progress Note - Extremities/Vascular Does the Patient have a Central Venous Catheter?: No Does the Patient need a Central Venous Catheter?: No Does the Patient have a Harris Catheter?: No Does the Patient need a Harris Catheter?: No Assessment/Plan (1) Asthma attack Current Visit: Yes Status: Acute Priority: High (2) Pneumonia Current Visit: Yes Status: Acute Priority: High (3) Sepsis Current Visit: Yes Status: Acute Priority: High (4) Respiratory distress Current Visit: Yes Status: Acute Priority: High - Assessment and Plan (Free Text) Assessment: ICU care for hemodynamic and Respiratory monitoring IV Solumedrol IV Rocephin and Zithromax Albuterol/Ipratropium INH RQ4 Resume Home medications Sigular, Breo Cough syrup Follow peak flows Suplemental Oxygen, Keep saturation >94% Use of BIPAP as needed Check Trop level RAST with aspergillus IgE levels. Pulmonary consult
[2018-10-06] MEDS ORDERED: Sodium Chloride 0.9% 1,000 ML IV ONE (19:07)
--- NOTE | 2018-10-06 19:07 | PCM.SEPTIC ---
Sepsis Progress Note - Reassessment Type Date of Evaluation: 10/06/18 Time of Evaluation: 14:00 Reassessment Type: Non-invasive reassessment - Non Invasive Reassessment Were the most recent vital sign reviewed: Yes Vital Sign (Latest): Temp Pulse Resp BP Pulse Ox 98.3 F 99 H 19 146/86 99 10/06/18 16:00 10/06/18 18:00 10/06/18 18:57 10/06/18 18:00 10/06/18 18:00 Cardiovascular: Yes: Regular Rate, Rhythm, Chest Non Tender. No: Edema, Gallop Respiratory: No: Wheezing, Respiratory Distress Capillary Refill: Normal (Less than 2 sec) Pulses: Normal Radial, Normal Dorsalis Pedis, Normal Posterior Tibialis Skin: Normal Color, Warm
[2018-10-06 19:38] LABS: ALB/GLOB RATIO 1.1 (1.0-2.1); ALBUMIN 3.6 g/dL (3.5-5.0); ALT/SGPT 33 U/L (9-52); AST/SGOT 43 U/L (14-36); BLOOD UREA NITROGEN 9 mg/dl (7-17); CALCIUM 8.3 mg/dL (8.4-10.2); GFR NON-AFRICAN AMERICAN > 60
[2018-10-06] MEDS: Fluticasone-Salmeterol 250-50mcg Diskus IH SCH (20:03)
--- NOTE | 2018-10-06 20:42 | CARD ---
APPROVED REPORT Date of service: 10/06/2018 EKG Measurement Heart [id number] <Conclusion> Sinus tachycardia Nonspecific ST abnormality Abnormal ECG
[2018-10-06] MEDS: Promethazine/Cod 6.25mg-10mg/5ml Syr UD PO PRN (23:04)
[2018-10-07 05:21] LABS: MEAN CELL VOLUME 90.3 fl (81.0-99.0); MEAN CORPUSCULAR HEMOGLOBIN 29.9 pg (27.0-31.0); MEAN CORPUSCULAR HGB CONC 33.1 g/dL (33.0-37.0); RBC 4.02 Mil/uL (3.80-5.20); RED CELL DISTRIBUTION WIDTH 14.3 % (11.5-14.5); WHITE BLOOD COUNT 8.6 K/uL (4.8-10.8)
[2018-10-07 05:44] LABS: ALBUMIN 3.1 g/dL (3.5-5.0); ALT/SGPT 44 U/L (9-52); AST/SGOT 32 U/L (14-36); BLOOD UREA NITROGEN 13 mg/dl (7-17); CALCIUM 8.4 mg/dL (8.4-10.2); GFR NON-AFRICAN AMERICAN > 60
[2018-10-07] MEDS: Promethazine/Cod 6.25mg-10mg/5ml Syr UD PO PRN ×2 (08:40→18:31)
[2018-10-07] MEDS: Albuterol-Ipratrop 3 mg / 0.5 (3 ml) UD IH PRN ×2 (08:45→11:24)
[2018-10-07] MEDS: Fluticasone-Salmeterol 250-50mcg Diskus IH SCH ×2 (08:51→21:32)
[2018-10-07] MEDS ORDERED: Home Med 1 UNIT INH SCH (09:00)
[2018-10-07] MEDS: Azithromycin 500 MG in Sodium Chloride 0.9% 250 ML IVPB SCH (09:02)
--- NOTE | 2018-10-07 09:54 | CP.PCM.HP ---
History of Present Illness - History of Present Illness History of Present Illness: 58 year old female presented to ED with SOB, wheezing, cough productive yellow sputum assoc with fever. No improvement with home nebulizers, and prednisone. Patient developed fever and hypotension. CODE sepsis called. Patient was sent to ICU for further management of sepsis and asthma exacerbation. Patient seen and examined at bedside. States much improvement since ED admission. continue with sob/cough at times. denies cp, fever, chills, abdominal pain at this time allergies: per chart meds: per chart fam hx: non contributory Present on Admission - Present on Admission Any Indicators Present on Admission: No Review of Systems - Review of Systems All systems: reviewed and no additional remarkable complaints except (mentioned above) Past Patient History - Infectious Disease Hx of Infectious Diseases: None - Past Medical History & Family History Past Medical History?: Yes Past Family History: Reviewed and not pertinent - Past Social History Smoking Status: Never Smoked - CARDIAC Hx Cardiac Disorders: No - PULMONARY Hx Asthma: Yes - NEUROLOGICAL Hx Neurological Disorder: No - HEENT Hx HEENT Problems: No Other/Comment: Uses glasses for reading. - RENAL Hx Chronic Kidney Disease: No - ENDOCRINE/METABOLIC Hx Hypothyroidism: Yes - HEMATOLOGICAL/ONCOLOGICAL Hx Human Immunodeficiency Virus (HIV): No - INTEGUMENTARY Hx Dermatological Problems: No - MUSCULOSKELETAL/RHEUMATOLOGICAL Hx Musculoskeletal Disorders: No Hx Falls: No - GASTROINTESTINAL Hx Gastritis: Yes Hx Pancreatitis: Yes Other/Comment: Diverticulosis - GENITOURINARY/GYNECOLOGICAL Hx Genitourinary Disorders: No - PSYCHIATRIC Hx Psychophysiologic Disorder: No Hx Substance Use: No - SURGICAL HISTORY Hx Cholecystectomy: Yes (laparoscopic cholesystectomy) - ANESTHESIA Hx Anesthesia: Yes Hx Anesthesia Reactions: No Hx Malignant Hyperthermia: No Has any member of the family had a problem w/ anesthesia?: No Meds Allergies/Adverse Reactions: Allergies Allergy/AdvReac Type Severity Reaction Status Date / Time ciprofloxacin [From Cipro] Allergy URTICARIA Verified 07/11/18 21:54 ciprofloxacin HCl Allergy URTICARIA Verified 07/11/18 21:54 [From Cipro] latex Allergy SHORTNESS Verified 07/11/18 21:54 OF BREATH Physical Exam - Constitutional Appears: Non-toxic, No Acute Distress - Head Exam Head Exam: NORMAL INSPECTION - Eye Exam Eye Exam: Normal appearance - Neck Exam Neck exam: Positive for: Normal Inspection - Respiratory Exam Respiratory Exam: Wheezes - Cardiovascular Exam Cardiovascular Exam: +S1, +S2 - GI/Abdominal Exam GI & Abdominal Exam: Soft - Extremities Exam Extremities exam: Positive for: normal inspection - Back Exam Back exam: NORMAL INSPECTION - Neurological Exam Neurological exam: Alert, Oriented x3 - Psychiatric Exam Psychiatric exam: Normal Affect, Normal Mood - Skin Skin Exam: Normal Color, Warm Results - Vital Signs Recent Vital Signs: Last Vital Signs Temp 98.2 F 10/07/18 08:10 Pulse 82 10/07/18 08:10 Resp 16 10/07/18 08:10 BP 116/74 10/07/18 08:10 Pulse Ox 97 10/07/18 08:10 - Labs Result Diagrams: 10/08/18 04:20 10/08/18 04:20 Labs: Laboratory Results - last 24 hr 10/06/18 10/06/18 10/06/18 09:31 10:15 10:15 WBC 11.3 H RBC 4.89 Hgb 14.4 Hct 43.9 MCV 89.8 MCH 29.4 MCHC 32.7 L RDW 14.5 Plt Count 302 MPV 8.4 Neut % (Auto) 61.4 Lymph % (Auto) 30.1 [place] % (Auto) 8.1 Eos % (Auto) 0.2 Baso % (Auto) 0.2 Neut # (Auto) 6.9 Lymph # (Auto) 3.4 [place] # (Auto) 0.9 H Eos # (Auto) 0.0 Baso # (Auto) 0.0 pO2 31 VBG pH 7.46 H VBG pCO2 36 L VBG HCO3 25.4 VBG Total CO2 26.7 VBG O2 Sat (Calc) 60.2 VBG Base Excess 1.9 VBG Potassium 2.7 L Sodium 139.0 141 Chloride 106.0 101 Glucose 123 H Lactate 2.3 H FiO2 70.0 Potassium 2.9 L Carbon Dioxide 30 Anion Gap 13 BUN 13 Creatinine 0.7 Est GFR ( Amer) > 60 Est GFR (Non-Af Amer) > 60 Random Glucose 102 Lactic Acid Calcium 9.5 Phosphorus Magnesium 1.9 Total Bilirubin 0.9 AST 44 H D ALT 44 Alkaline Phosphatase 110 Troponin I Total Protein 8.0 Albumin 4.4 Globulin 3.7 Albumin/Globulin Ratio 1.2 Venous Blood Potassium 2.7 L Influenza Typ A,B (EIA) 10/06/18 10/06/18 10/06/18 10:20 18:15 18:15 WBC RBC Hgb Hct MCV MCH MCHC RDW Plt Count MPV Neut % (Auto) Lymph % (Auto) [place] % (Auto) Eos % (Auto) Baso % (Auto) Neut # (Auto) Lymph # (Auto) [place] # (Auto) Eos # (Auto) Baso # (Auto) pO2 VBG pH VBG pCO2 VBG HCO3 VBG Total CO2 VBG O2 Sat (Calc) VBG Base Excess VBG Potassium Sodium 141 Chloride 109 H Glucose Lactate FiO2 Potassium 3.9 Carbon Dioxide 21 L Anion Gap 15 BUN 9 Creatinine 0.6 L Est GFR ( Amer) > 60 Est GFR (Non-Af Amer) > 60 Random Glucose 199 H Lactic Acid 3.4 H Calcium 8.3 L Phosphorus 3.0 Magnesium 2.4 H Total Bilirubin 0.6 AST 43 H ALT 33 Alkaline Phosphatase 94 Troponin I < 0.0120 Total Protein 6.9 Albumin 3.6 Globulin 3.2 Albumin/Globulin Ratio 1.1 Venous Blood Potassium Influenza Typ A,B (EIA) Negative for flu a/b 10/07/18 10/07/18 10/07/18 04:20 04:20 04:20 WBC 8.6 RBC 4.02 Hgb 12.0 D Hct 36.3 MCV 90.3 MCH 29.9 MCHC 33.1 RDW 14.3 Plt Count 248 MPV Neut % (Auto) Lymph % (Auto) [place] % (Auto) Eos % (Auto) Baso % (Auto) Neut # (Auto) Lymph # (Auto) [place] # (Auto) Eos # (Auto) Baso # (Auto) pO2 VBG pH VBG pCO2 VBG HCO3 VBG Total CO2 VBG O2 Sat (Calc) VBG Base Excess VBG Potassium Sodium 140 Chloride 110 H Glucose Lactate FiO2 Potassium 4.1 Carbon Dioxide 25 Anion Gap 9 L BUN 13 Creatinine 0.5 L Est GFR ( Amer) > 60 Est GFR (Non-Af Amer) > 60 Random Glucose 147 H Lactic Acid 1.2 Calcium 8.4 Phosphorus 3.8 Magnesium 2.3 Total Bilirubin 0.4 AST 32 ALT 44 Alkaline Phosphatase 77 Troponin I Total Protein 6.2 L Albumin 3.1 L Globulin 3.1 Albumin/Globulin Ratio 1.0 Venous Blood Potassium Influenza Typ A,B (EIA) Assessment & Plan (1) Asthma attack Status: Acute Priority: High (2) Sepsis Status: Acute Priority: High - Assessment and Plan (Free Text) Assessment: monitor vitals monitor labs management in icu cont meds as ordered consult pulmonology rest of plan as ordered
--- NOTE | 2018-10-07 11:21 | CP.CCUPN ---
CCU Subjective - Physician Review Subjective (Free Text): Awake and in pleasant mood, sitting up in bed, wheezing and coughing upon deep inspiration, denies any CP per se, no SOB at bed rest but prefers increased O2 flow from the HFNC. Spo2 100% on 50% but is 91% on RA. No fevers, HR 85 sinus, SBP 120s. Has refused SCDs and chemical DVT prophylaxis. Other vitals and I/O's reviewed. ROS: No other pertinent negs or positives on 10+ system review, PMSFH: All other Nursing and physician documentation reviewed to date; no new pertinent info noted relevant to current medical problems. EXAM- HEENT: no icterus, no gaze preference NECK: No JVD visible, supple, carotids equal upstroke bilat/no bruit CHEST: decreased BS at the bases, + diffuse wheezes audible bilaterally HEART: regular, distant, S1S2, no rubs or murmurs noted ABD: softly and nontender, no guarding, no organomegaly, BS hypoactive. EXT: no LE edema, no calf tenderness or palpable cords, distal pulses intact and symmetrical. NEURO: no gross focal deficits. SKIN: no rashes, warm and dry LABS: WBC= 8.6 HGB= 12.0 PLTs= 248K Na= 140 K= 4.1 HE=412 HCO3= 25 BUN/Cr= 13/0.5 BS= 147 Lactic acid = 1.2 CXR: clear (my interp). IMPRESSION / MAJOR PROBLEMS NOW: 1. Acute Asthma Exacerbation with Tracheobronchitis 2. Lactic acidosis 2 hypoxemia PLAN: 1. Empiric anti-viral and antibiotic therapy noted. 2. Avoid hyperoxia, switch to nasal cannula today as tolerated, albeit at 5 LPM if patient p[refers subjective higher flows. 3. IV steroids ongoing, advised patient to hold off on Pro-Air and Breo for now. Maintain IVF hydration. 4. Consider Pulm consult. 5. Check Free t4, TSH on THRT.
[2018-10-07] MEDS ORDERED: Sodium Chloride 3% for Inhalation 4 ML VIAL.NEB IH PRN (11:46)
[2018-10-07] MEDS: Sodium Chloride 0.9% 1,000 ML IV SCH ×2 (11:56→21:39)
[2018-10-07] MEDS: Albuterol-Ipratrop 3 mg / 0.5 (3 ml) UD IH SCH ×3 (12:00→19:14)
--- NOTE | 2018-10-07 17:54 | CON ---
DATE: 10/07/2018 CONSULTATION REPORT HISTORY OF PRESENT ILLNESS: Ms. Bañuelos is a 58-year-old female who was referred for pulmonary evaluation because of progressively worsening shortness of breath, exercise intolerance for the past several days prior to presentation and chest tightness. She was admitted via the emergency room with Code sepsis and acute asthma. She is in intensive care unit on high-flow oxygen. PAST MEDICAL HISTORY: Remarkable for thyroid disorder, diverticular disease, gastritis, hiatal hernia, autoimmune pancreatitis. ALLERGY: TO CIPRO. FAMILY HISTORY: Noncontributory. SOCIAL HISTORY: Socially, she does not smoke or drink and works as a nurse. REVIEW OF SYSTEMS: Essentially remarkable for occasional shortness of breath. PHYSICAL EXAMINATION: GENERAL: The patient is alert, oriented, still has shortness of breath at rest and on mild exertion. VITAL SIGNS: Blood pressure on admission was 109/70 with a pulse of 100, respiratory rate 18. She has a temperature of 98.6 degrees Fahrenheit, O2 sat 100% presently on high-flow oxygen. HEENT: Mouth shows fair hygiene. NECK: JVP flat. LUNGS: Coarse bilateral rales and wheezing. HEART: Rate is about 70 per minute but followed way down to the 50s. ABDOMEN: Soft, nontender, no organomegaly. EXTREMITIES: Shows no edema or cyanosis. CENTRAL NERVOUS SYSTEM: Exam grossly intact. LABORATORY DATA: CT scan of the chest unremarkable for pulmonary embolism. Chest x-ray borderline right basilar infiltrate or atelectasis. Remaining of the lung knight are clear. EKG, sinus tachycardia, rate of 124 per minute, nonspecific ST changes. WBC 8.6, hemoglobin 12, platelet count 246,000. Sodium 140, potassium 4.1, BUN of 13, creatinine 0.5. Venous blood gas shows pH 7.46, pO2 of 31, pCO2 of 36 with a lactate level of 2.3. IMPRESSION: Acute exacerbation of asthma, sepsis, mucus plugging of airways.. PLAN: The plan is to continue high-flow oxygen, aerosolized bronchodilators, IV steroids., and antibiotics. We will give Mucomyst to help expectorate sputum. Further therapy depends on finding. Tomas Khan MD
[2018-10-07] MEDS: Acetylcysteine 20% Inhal Soln (4ml) INH SCH (19:14)
[2018-10-08] MEDS: Albuterol-Ipratrop 3 mg / 0.5 (3 ml) UD IH SCH ×6 (00:34→23:53)
[2018-10-08] MEDS: Levothyroxine 75 MCG TAB PO SCH (05:31)
[2018-10-08 05:45] LABS: HEMOGLOBIN 11.9 g/dL (12.0-16.0); MEAN CELL VOLUME 90.7 fl (81.0-99.0); MEAN CORPUSCULAR HEMOGLOBIN 29.7 pg (27.0-31.0); MEAN CORPUSCULAR HGB CONC 32.7 g/dL (33.0-37.0); RED CELL DISTRIBUTION WIDTH 14.4 % (11.5-14.5); WHITE BLOOD COUNT 14.3 K/uL (4.8-10.8)
[2018-10-08 06:14] LABS: ALB/GLOB RATIO 1.2 (1.0-2.1); ALBUMIN 3.5 g/dL (3.5-5.0); ALT/SGPT 30 U/L (9-52); AST/SGOT 22 U/L (14-36); BLOOD UREA NITROGEN 15 mg/dl (7-17); CALCIUM 8.8 mg/dL (8.4-10.2); GFR NON-AFRICAN AMERICAN > 60
[2018-10-08] MEDS: Acetylcysteine 20% Inhal Soln (4ml) INH SCH ×2 (07:55→19:19)
[2018-10-08] MEDS: Sodium Chloride 0.9% 1,000 ML IV SCH (09:00)
--- NOTE | 2018-10-08 09:22 | CP.PCM.PN ---
Subjective - Date & Time of Evaluation Date of Evaluation: 10/08/18 Time of Evaluation: 09:22 - Subjective Subjective: STILL DYSPNEIC ON MILD EXERTION BUT CLINICALLY IMPROVING NO CHEST PAINS COUGHING UP THICK TENACEOUS SPUTUM O2 SAT--94% ON RA Objective - Vital Signs/Intake and Output Vital Signs (last 24 hours): Temp Pulse Resp BP Pulse Ox 98.2 F 88 21 121/75 100 10/08/18 08:00 10/08/18 08:00 10/08/18 08:00 10/08/18 08:00 10/08/18 08:00 Intake and Output: 10/08/18 10/08/18 06:59 18:59 Intake Total 1180 Balance 1180 - Medications Medications: Current Medications Acetylcysteine (Acetylcysteine 20%) 2 ml INH RBID [facility] Last Admin: 10/08/18 07:55 Dose: 2 ml Albuterol/Ipratropium (Duoneb 3 Mg/0.5 Mg (3 Ml) Ud) 3 ml IH RQ4 [facility] Last Admin: 10/08/18 07:55 Dose: 3 ml Heparin Sodium (Porcine) (Heparin) 5,000 units SC Q8 [facility]; Protocol Last Admin: 10/08/18 01:00 Dose: Not Given Azithromycin 500 mg/ Sodium (Chloride) 250 mls @ 250 mls/hr IVPB DAILY [facility]; Protocol Last Admin: 10/07/18 09:02 Dose: 250 mls/hr Ceftriaxone Sodium 1 gm/ (Sodium Chloride) 100 mls @ 100 mls/hr IVPB DAILY [facility]; Protocol Last Admin: 10/07/18 08:33 Dose: 100 mls/hr Sodium Chloride (Sodium Chloride 0.9%) 1,000 mls @ 100 mls/hr IV .Q10H [facility] Stop: 10/08/18 11:19 Last Admin: 10/07/18 21:39 Dose: 100 mls/hr Levothyroxine Sodium (Synthroid) 75 mcg PO DAILY@0630 [facility] Last Admin: 10/08/18 05:31 Dose: 75 mcg Methylprednisolone (Solu-Medrol) 60 mg IVP Q6 [facility] Last Admin: 10/08/18 05:24 Dose: 60 mg Montelukast Sodium (Singulair) 10 mg PO HS [facility] Last Admin: 10/07/18 21:17 Dose: 10 mg Oseltamivir Phosphate (Tamiflu Cap) 75 mg PO DAILY [facility]; Protocol Last Admin: 10/07/18 08:41 Dose: 75 mg Promethazine HCl/Codeine (Phenergan/Codeine Oral Syrup) 5 ml PO Q6 PRN PRN Reason: Cough Last Admin: 10/07/18 18:31 Dose: 5 ml Fluticasone/Salmeterol (Advair Diskus 250/50) 1 puff IH Q12 [facility] Last Admin: 10/07/18 21:32 Dose: Not Given Ursodiol (Actigall) 300 mg PO TID [facility] - Labs Labs: 10/08/18 04:20 10/08/18 04:20 - Constitutional Appears: No Acute Distress - Head Exam Head Exam: ATRAUMATIC, NORMAL INSPECTION, NORMOCEPHALIC - Eye Exam Eye Exam: EOMI, Normal appearance, PERRL Pupil Exam: NORMAL ACCOMODATION, PERRL - ENT Exam ENT Exam: Mucous Membranes Moist, Normal Exam - Neck Exam Neck Exam: Full ROM, Normal Inspection. absent: Lymphadenopathy - Respiratory Exam Respiratory Exam: Decreased Breath Sounds, Prolonged Expiratory Phase, Rales, Wheezes, NORMAL BREATHING PATTERN - Cardiovascular Exam Cardiovascular Exam: REGULAR RHYTHM, +S1, +S2. absent: Murmur - GI/Abdominal Exam GI & Abdominal Exam: Soft, Normal Bowel Sounds. absent: Tenderness - Rectal Exam Rectal Exam: NORMAL INSPECTION - Extremities Exam Extremities Exam: Full ROM, Normal Capillary Refill, Normal Inspection. absent: Joint Swelling, Pedal Edema - Back Exam Back Exam: NORMAL INSPECTION - Neurological Exam Neurological Exam: Alert, Awake, CN II-XII Intact, Normal Gait, Oriented x3 - Psychiatric Exam Psychiatric exam: Normal Affect, Normal Mood - Skin Skin Exam: Dry, Intact, Normal Color, Warm Assessment and Plan - Assessment and Plan (Free Text) Assessment: ACUTE ASTHMA SEPSIS Plan: CONTINUE CURRENT RX
[2018-10-08] MEDS: Fluticasone-Salmeterol 250-50mcg Diskus IH SCH ×2 (09:39→21:32)
[2018-10-08] MEDS: Azithromycin 500 MG in Sodium Chloride 0.9% 250 ML IVPB SCH (10:00)
--- NOTE | 2018-10-08 11:37 | CP.PCM.PN ---
Subjective - Date & Time of Evaluation Date of Evaluation: 10/08/18 Time of Evaluation: 08:00 - Subjective Subjective: patient seen and examined at bedside. Interim events noted No complaints offered at this time denies cp/sob/fever/chills. available diagnostic data reviewed Objective Vital Signs Stable - Constitutional Appears: Non-toxic, No Acute Distress - Head Exam Head Exam: NORMAL INSPECTION - Eye Exam Eye Exam: Normal appearance - Respiratory Exam Respiratory Exam: NORMAL BREATHING PATTERN, wheezing - Cardiovascular Exam Cardiovascular Exam: +S1, +S2 - GI/Abdominal Exam GI & Abdominal Exam: Soft - Neurological Exam Neurological Exam: Alert, Awake - Psychiatric Exam Psychiatric exam: Normal Affect, Normal Mood - Skin Skin Exam: Normal Color, Warm Assessment and Plan monitor vitals monitor labs Cont meds Cont tx consultants appreciated input rest of plan as ordered Assessment and Plan (1) Asthma attack Status: Acute (2) Sepsis Status: Acute
[2018-10-09] MEDS: Albuterol-Ipratrop 3 mg / 0.5 (3 ml) UD IH SCH ×5 (05:15→19:26)
[2018-10-09 05:38] LABS: HEMOGLOBIN 12.2 g/dL (12.0-16.0); MEAN CELL VOLUME 90.2 fl (81.0-99.0); MEAN CORPUSCULAR HEMOGLOBIN 29.1 pg (27.0-31.0); MEAN CORPUSCULAR HGB CONC 32.2 g/dL (33.0-37.0); RBC 4.19 Mil/uL (3.80-5.20); RED CELL DISTRIBUTION WIDTH 14.7 % (11.5-14.5); WHITE BLOOD COUNT 16.9 K/uL (4.8-10.8)
[2018-10-09] MEDS: Levothyroxine 75 MCG TAB PO SCH (05:54)
[2018-10-09 05:56] LABS: BLOOD UREA NITROGEN 19 mg/dl (7-17); GFR NON-AFRICAN AMERICAN > 60
[2018-10-09] MEDS: Acetylcysteine 20% Inhal Soln (4ml) INH SCH ×2 (08:06→19:26)
[2018-10-09] MEDS: Azithromycin 500 MG in Sodium Chloride 0.9% 250 ML IVPB SCH (08:37)
[2018-10-09] MEDS: Fluticasone-Salmeterol 250-50mcg Diskus IH SCH ×2 (08:39→20:19)
[2018-10-09] MEDS: Promethazine/Cod 6.25mg-10mg/5ml Syr UD PO PRN (09:41)
--- NOTE | 2018-10-09 11:47 | CP.PCM.PN ---
Subjective - Date & Time of Evaluation Date of Evaluation: 10/09/18 Time of Evaluation: 11:47 - Subjective Subjective: cough improved sob improving Objective - Vital Signs/Intake and Output Vital Signs (last 24 hours): Temp Pulse Resp BP Pulse Ox 98.2 F 74 17 132/72 98 10/09/18 04:00 10/09/18 08:00 10/09/18 08:00 10/09/18 08:00 10/09/18 08:00 Intake and Output: 10/09/18 10/09/18 06:59 18:59 Intake Total 50 610 Balance 50 610 - Medications Medications: Current Medications Acetylcysteine (Acetylcysteine 20%) 2 ml INH RBID [facility] Last Admin: 10/09/18 08:06 Dose: 2 ml Albuterol/Ipratropium (Duoneb 3 Mg/0.5 Mg (3 Ml) Ud) 3 ml IH RQ4 [facility] Last Admin: 10/09/18 11:15 Dose: 3 ml Famotidine (Pepcid) 20 mg PO DAILY [facility] Heparin Sodium (Porcine) (Heparin) 5,000 units SC Q8 [facility]; Protocol Last Admin: 10/09/18 08:40 Dose: Not Given Azithromycin 500 mg/ Sodium (Chloride) 250 mls @ 250 mls/hr IVPB DAILY [facility]; Protocol Last Admin: 10/09/18 08:37 Dose: 250 mls/hr Ceftriaxone Sodium 1 gm/ (Sodium Chloride) 100 mls @ 100 mls/hr IVPB DAILY [facility]; Protocol Last Admin: 10/09/18 08:38 Dose: 100 mls/hr Levothyroxine Sodium (Synthroid) 75 mcg PO DAILY@0630 [facility] Last Admin: 10/09/18 05:54 Dose: 75 mcg Montelukast Sodium (Singulair) 10 mg PO HS [facility] Last Admin: 10/08/18 21:33 Dose: 10 mg Oseltamivir Phosphate (Tamiflu Cap) 75 mg PO DAILY [facility]; Protocol Last Admin: 10/09/18 08:35 Dose: 75 mg Promethazine HCl/Codeine (Phenergan/Codeine Oral Syrup) 5 ml PO Q6 PRN PRN Reason: Cough Last Admin: 10/09/18 09:41 Dose: 5 ml Fluticasone/Salmeterol (Advair Diskus 250/50) 1 puff IH Q12 [facility] Last Admin: 10/09/18 08:39 Dose: 1 puff Ursodiol (Actigall) 300 mg PO TID [facility] Last Admin: 10/09/18 08:35 Dose: 300 mg - Labs Labs: 10/09/18 04:20 10/09/18 04:20 - Constitutional Appears: No Acute Distress - Head Exam Head Exam: ATRAUMATIC, NORMAL INSPECTION, NORMOCEPHALIC - Eye Exam Eye Exam: EOMI, Normal appearance, PERRL Pupil Exam: NORMAL ACCOMODATION, PERRL - ENT Exam ENT Exam: Mucous Membranes Moist, Normal Exam - Neck Exam Neck Exam: Full ROM, Normal Inspection. absent: Lymphadenopathy - Respiratory Exam Respiratory Exam: Prolonged Expiratory Phase, Wheezes, NORMAL BREATHING PATTERN - Cardiovascular Exam Cardiovascular Exam: REGULAR RHYTHM, +S1, +S2. absent: Murmur - GI/Abdominal Exam GI & Abdominal Exam: Soft, Normal Bowel Sounds. absent: Tenderness - Rectal Exam Rectal Exam: NORMAL INSPECTION - Extremities Exam Extremities Exam: Full ROM, Normal Capillary Refill, Normal Inspection. absent: Joint Swelling, Pedal Edema - Back Exam Back Exam: NORMAL INSPECTION - Neurological Exam Neurological Exam: Alert, Awake, CN II-XII Intact, Normal Gait, Oriented x3 - Psychiatric Exam Psychiatric exam: Normal Affect, Normal Mood - Skin Skin Exam: Dry, Intact, Normal Color, Warm Assessment and Plan - Assessment and Plan (Free Text) Assessment: asthma improving sepsis improving Plan: taper steroids continue antibiotics and bronchodilator rx
--- NOTE | 2018-10-09 14:45 | CP.PCM.PN ---
Subjective - Date & Time of Evaluation Date of Evaluation: 10/09/18 Time of Evaluation: 10:00 - Subjective Subjective: Pt seen and assessed at bedside. AAOx3. Reports improvement in breathing on nasal cannula. No new complaints, denies chest pain and shortness of breath. Currently on antibiotic/antiviral treatment, steroid therapy, and nebulizers. Objective - Vital Signs/Intake and Output Vital Signs (last 24 hours): Temp Pulse Resp BP Pulse Ox 98.7 F 112 H 20 110/65 99 10/09/18 12:00 10/09/18 12:00 10/09/18 12:00 10/09/18 12:00 10/09/18 12:00 Intake and Output: 10/09/18 10/09/18 06:59 18:59 Intake Total 50 610 Balance 50 610 - Medications Medications: Current Medications Acetylcysteine (Acetylcysteine 20%) 2 ml INH RBID [facility] Last Admin: 10/09/18 08:06 Dose: 2 ml Albuterol/Ipratropium (Duoneb 3 Mg/0.5 Mg (3 Ml) Ud) 3 ml IH RQ4 [facility] Last Admin: 10/09/18 11:15 Dose: 3 ml Famotidine (Pepcid) 20 mg PO DAILY [facility] Last Admin: 10/09/18 12:27 Dose: 20 mg Heparin Sodium (Porcine) (Heparin) 5,000 units SC Q8 [facility]; Protocol Last Admin: 10/09/18 08:40 Dose: Not Given Azithromycin 500 mg/ Sodium (Chloride) 250 mls @ 250 mls/hr IVPB DAILY [facility]; Protocol Last Admin: 10/09/18 08:37 Dose: 250 mls/hr Ceftriaxone Sodium 1 gm/ (Sodium Chloride) 100 mls @ 100 mls/hr IVPB DAILY [facility]; Protocol Last Admin: 10/09/18 08:38 Dose: 100 mls/hr Levothyroxine Sodium (Synthroid) 75 mcg PO DAILY@0630 [facility] Last Admin: 10/09/18 05:54 Dose: 75 mcg Methylprednisolone (Solu-Medrol) 60 mg IV Q12 [facility] Montelukast Sodium (Singulair) 10 mg PO HS [facility] Last Admin: 10/08/18 21:33 Dose: 10 mg Oseltamivir Phosphate (Tamiflu Cap) 75 mg PO DAILY [facility]; Protocol Last Admin: 10/09/18 08:35 Dose: 75 mg Promethazine HCl/Codeine (Phenergan/Codeine Oral Syrup) 5 ml PO Q6 PRN PRN Reason: Cough Last Admin: 10/09/18 09:41 Dose: 5 ml Fluticasone/Salmeterol (Advair Diskus 250/50) 1 puff IH Q12 [facility] Last Admin: 10/09/18 08:39 Dose: 1 puff Ursodiol (Actigall) 300 mg PO TID [facility] Last Admin: 10/09/18 13:34 Dose: 300 mg - Labs Labs: 10/09/18 04:20 10/09/18 04:20 - Constitutional Appears: Well - Head Exam Head Exam: NORMAL INSPECTION - Eye Exam Eye Exam: EOMI, Normal appearance, PERRL - ENT Exam ENT Exam: Normal Exam - Neck Exam Neck Exam: Normal Inspection - Respiratory Exam Respiratory Exam: Decreased Breath Sounds, Wheezes - Cardiovascular Exam Cardiovascular Exam: REGULAR RHYTHM Additional comments: At rest pt's heart rate is controlled. Occasional periods of intermittent tachycardia during coughing episodes. - GI/Abdominal Exam GI & Abdominal Exam: Soft, Normal Bowel Sounds - Extremities Exam Extremities Exam: Normal Capillary Refill, Normal Inspection - Back Exam Back Exam: NORMAL INSPECTION - Neurological Exam Neurological Exam: Alert, Awake, Oriented x3 - Psychiatric Exam Psychiatric exam: Normal Affect, Normal Mood - Skin Skin Exam: Dry, Normal Color, Warm Assessment and Plan (1) Asthma attack Assessment & Plan: Assessment/Impression/Current Problems: 1.) Asthma Exacerbation -Solumedrol 60 mg tapered to q12h, follow pulmonary recommendations. -Continue Azithromycin + Rocephin, as well as antiviral therapy. -nasal cannula and duonebs ordered. -Phenergan with codeine for persistent cough. Status: Acute
[2018-10-09] MEDS ORDERED: methylPREDNISolone 60 MG in Sodium Chloride 0.9% 50 ML IVP SCH (17:00)
[2018-10-10] MEDS: Albuterol-Ipratrop 3 mg / 0.5 (3 ml) UD IH SCH ×7 (00:04→23:42)
[2018-10-10] MEDS: Levothyroxine 75 MCG TAB PO SCH (05:39)
[2018-10-10 06:19] LABS: BASO % 0.1 % (0.0-2.0); HEMOGLOBIN 13.2 g/dL (12.0-16.0); LYMPH # 2.8 K/uL (1.0-4.3); LYMPH % 17.2 % (20.0-40.0); MEAN CELL VOLUME 90.5 fl (81.0-99.0); MEAN CORPUSCULAR HEMOGLOBIN 29.3 pg (27.0-31.0); MEAN CORPUSCULAR HGB CONC 32.4 g/dL (33.0-37.0); MEAN PLATELET VOLUME 8.2 fl (7.2-11.7); MONO # 0.7 K/uL (0.0-0.8); MONO % 4.3 % (0.0-10.0); NEUT # 12.6 K/uL (1.8-7.0); NEUT % 78.4 % (50.0-75.0); RBC 4.52 Mil/uL (3.80-5.20); RED CELL DISTRIBUTION WIDTH 14.4 % (11.5-14.5); WHITE BLOOD COUNT 16.1 K/uL (4.8-10.8)
[2018-10-10 06:36] LABS: ALB/GLOB RATIO 1.2 (1.0-2.1); ALBUMIN 3.9 g/dL (3.5-5.0); ALT/SGPT 35 U/L (9-52); AST/SGOT 26 U/L (14-36); BLOOD UREA NITROGEN 19 mg/dl (7-17); CALCIUM 9.2 mg/dL (8.4-10.2); GFR NON-AFRICAN AMERICAN > 60
[2018-10-10] MEDS: Acetylcysteine 20% Inhal Soln (4ml) INH SCH ×2 (07:15→19:48)
[2018-10-10] MEDS: Azithromycin 500 MG in Sodium Chloride 0.9% 250 ML IVPB SCH (08:54)
[2018-10-10] MEDS: Fluticasone-Salmeterol 250-50mcg Diskus IH SCH ×2 (08:58→22:20)
[2018-10-10] MEDS: MethylPREDNISolone 40 mg Vial IV SCH (09:00)
[2018-10-10] MEDS ORDERED: guaiFENesin DM 200 mg-20 mg/10 ml UD PO PRN (10:12)
--- NOTE | 2018-10-10 10:22 | CP.PCM.PN ---
Subjective - Date & Time of Evaluation Date of Evaluation: 10/10/18 Time of Evaluation: 10:20 - Subjective Subjective: Still has some wheezing. Noted heart rate to go up to `120's with light activity. Objective - Vital Signs/Intake and Output Vital Signs (last 24 hours): Temp Pulse Resp BP Pulse Ox 98.0 F 116 H 19 135/82 95 10/10/18 08:00 10/10/18 08:00 10/10/18 08:00 10/10/18 08:00 10/10/18 08:00 Intake and Output: 10/10/18 10/10/18 06:59 18:59 Intake Total 150 Balance 150 - Medications Medications: Current Medications Acetylcysteine (Acetylcysteine 20%) 2 ml INH RBID [facility] Last Admin: 10/10/18 07:15 Dose: 2 ml Albuterol/Ipratropium (Duoneb 3 Mg/0.5 Mg (3 Ml) Ud) 3 ml IH RQ4 [facility] Last Admin: 10/10/18 07:16 Dose: 3 ml Famotidine (Pepcid) 20 mg PO DAILY [facility] Last Admin: 10/10/18 08:50 Dose: 20 mg Guaifenesin/Dextromethorphan (Robitussin Dm) 10 ml PO Q6 [facility] Heparin Sodium (Porcine) (Heparin) 5,000 units SC Q8 [facility]; Protocol Last Admin: 10/10/18 08:51 Dose: Not Given Azithromycin 500 mg/ Sodium (Chloride) 250 mls @ 250 mls/hr IVPB DAILY [facility]; Protocol Last Admin: 10/10/18 08:54 Dose: 250 mls/hr Ceftriaxone Sodium 1 gm/ (Sodium Chloride) 100 mls @ 100 mls/hr IVPB DAILY [facility]; Protocol Last Admin: 10/10/18 08:55 Dose: 100 mls/hr Levothyroxine Sodium (Synthroid) 75 mcg PO DAILY@0630 [facility] Last Admin: 10/10/18 05:39 Dose: 75 mcg Methylprednisolone (Solu-Medrol) 60 mg IV Q12 [facility] Last Admin: 10/10/18 08:51 Dose: 60 mg Montelukast Sodium (Singulair) 10 mg PO HS [facility] Last Admin: 10/09/18 21:58 Dose: 10 mg Fluticasone/Salmeterol (Advair Diskus 250/50) 1 puff IH Q12 [facility] Last Admin: 10/10/18 08:58 Dose: 1 puff Ursodiol (Actigall) 300 mg PO TID [facility] Last Admin: 10/10/18 08:50 Dose: 300 mg - Labs Labs: 10/10/18 05:40 10/10/18 05:40 - Head Exam Head Exam: NORMAL INSPECTION - Eye Exam Eye Exam: Normal appearance - ENT Exam ENT Exam: Mucous Membranes Moist - Respiratory Exam Respiratory Exam: Decreased Breath Sounds, Rhonchi, Wheezes - Cardiovascular Exam Cardiovascular Exam: REGULAR RHYTHM - GI/Abdominal Exam GI & Abdominal Exam: Normal Bowel Sounds - Neurological Exam Neurological Exam: Awake, Oriented x3 Assessment and Plan (1) Asthma exacerbation Status: Acute (2) Tachycardia Status: Acute (3) Hypothyroidism Status: Acute - Assessment and Plan (Free Text) Plan: Cont meds taper solumedrol cont neb tx cont meds follow up with Dr Khan
[2018-10-10] MEDS: guaiFENesin DM 200 mg-20 mg/10 ml UD PO SCH ×3 (10:48→21:52)
--- NOTE | 2018-10-10 12:22 | CP.PCM.PN ---
Subjective - Date & Time of Evaluation Date of Evaluation: 10/10/18 Time of Evaluation: 12:23 - Subjective Subjective: FEELS BETTER SOB IMPROVED COUGH LESS Objective - Vital Signs/Intake and Output Vital Signs (last 24 hours): Temp Pulse Resp BP Pulse Ox 98.7 F 103 H 18 139/90 96 10/10/18 11:58 10/10/18 11:58 10/10/18 11:58 10/10/18 11:58 10/10/18 11:58 Intake and Output: 10/10/18 10/10/18 06:59 18:59 Intake Total 150 Balance 150 - Medications Medications: Current Medications Acetylcysteine (Acetylcysteine 20%) 2 ml INH RBID [facility] Last Admin: 10/10/18 07:15 Dose: 2 ml Albuterol/Ipratropium (Duoneb 3 Mg/0.5 Mg (3 Ml) Ud) 3 ml IH RQ4 [facility] Last Admin: 10/10/18 11:10 Dose: 3 ml Famotidine (Pepcid) 20 mg PO DAILY [facility] Last Admin: 10/10/18 08:50 Dose: 20 mg Guaifenesin/Dextromethorphan (Robitussin Dm) 10 ml PO Q6 [facility] Last Admin: 10/10/18 10:48 Dose: 10 ml Heparin Sodium (Porcine) (Heparin) 5,000 units SC Q8 [facility]; Protocol Last Admin: 10/10/18 08:51 Dose: Not Given Azithromycin 500 mg/ Sodium (Chloride) 250 mls @ 250 mls/hr IVPB DAILY [facility]; Protocol Last Admin: 10/10/18 08:54 Dose: 250 mls/hr Ceftriaxone Sodium 1 gm/ (Sodium Chloride) 100 mls @ 100 mls/hr IVPB DAILY [facility]; Protocol Last Admin: 10/10/18 08:55 Dose: 100 mls/hr Levothyroxine Sodium (Synthroid) 75 mcg PO DAILY@0630 [facility] Last Admin: 10/10/18 05:39 Dose: 75 mcg Montelukast Sodium (Singulair) 10 mg PO HS [facility] Last Admin: 10/09/18 21:58 Dose: 10 mg Fluticasone/Salmeterol (Advair Diskus 250/50) 1 puff IH Q12 [facility] Last Admin: 10/10/18 08:58 Dose: 1 puff Ursodiol (Actigall) 300 mg PO TID [facility] Last Admin: 10/10/18 08:50 Dose: 300 mg - Labs Labs: 10/10/18 05:40 10/10/18 05:40 - Constitutional Appears: No Acute Distress - Head Exam Head Exam: ATRAUMATIC, NORMAL INSPECTION, NORMOCEPHALIC - Eye Exam Eye Exam: EOMI, Normal appearance, PERRL Pupil Exam: NORMAL ACCOMODATION, PERRL - ENT Exam ENT Exam: Mucous Membranes Moist, Normal Exam - Neck Exam Neck Exam: Full ROM, Normal Inspection. absent: Lymphadenopathy - Respiratory Exam Respiratory Exam: Wheezes, NORMAL BREATHING PATTERN - Cardiovascular Exam Cardiovascular Exam: REGULAR RHYTHM, +S1, +S2. absent: Murmur - GI/Abdominal Exam GI & Abdominal Exam: Soft, Normal Bowel Sounds. absent: Tenderness - Rectal Exam Rectal Exam: NORMAL INSPECTION - Extremities Exam Extremities Exam: Full ROM, Normal Capillary Refill, Normal Inspection. absent: Joint Swelling, Pedal Edema - Back Exam Back Exam: NORMAL INSPECTION - Neurological Exam Neurological Exam: Alert, Awake, CN II-XII Intact, Normal Gait, Oriented x3 - Psychiatric Exam Psychiatric exam: Normal Affect, Normal Mood - Skin Skin Exam: Dry, Intact, Normal Color, Warm - Additional Findings Additional findings: SPUTUM--PSEUDOMONAS Assessment and Plan - Assessment and Plan (Free Text) Assessment: SEPSIS--IMPROVED PSEUDOMONAS URI ACUTE ASTHMA Plan: TAPER STEROIDS OK TO D/C ON PO ANTIBIOTICS AND STEROIDS IN AM IF STABLE
[2018-10-11] MEDS: guaiFENesin DM 200 mg-20 mg/10 ml UD PO SCH ×2 (04:00→09:13)
[2018-10-11] MEDS: Albuterol-Ipratrop 3 mg / 0.5 (3 ml) UD IH SCH ×3 (05:02→11:22)
[2018-10-11] MEDS: Levothyroxine 75 MCG TAB PO SCH (06:07)
[2018-10-11 06:53] LABS: HEMOGLOBIN 12.6 g/dL (12.0-16.0); MEAN CELL VOLUME 91.5 fl (81.0-99.0); MEAN CORPUSCULAR HEMOGLOBIN 29.5 pg (27.0-31.0); MEAN CORPUSCULAR HGB CONC 32.3 g/dL (33.0-37.0); RBC 4.28 Mil/uL (3.80-5.20); RED CELL DISTRIBUTION WIDTH 14.5 % (11.5-14.5); WHITE BLOOD COUNT 16.2 K/uL (4.8-10.8)
[2018-10-11 06:59] LABS: ALB/GLOB RATIO 1.2 (1.0-2.1); ALBUMIN 3.6 g/dL (3.5-5.0); ALT/SGPT 30 U/L (9-52); AST/SGOT 27 U/L (14-36); BLOOD UREA NITROGEN 19 mg/dl (7-17); CALCIUM 9.2 mg/dL (8.4-10.2); GFR NON-AFRICAN AMERICAN > 60
[2018-10-11] MEDS: Acetylcysteine 20% Inhal Soln (4ml) INH SCH (07:48)
[2018-10-11 08:22] VITALS: TEMP 98.8
[2018-10-11] MEDS: Fluticasone-Salmeterol 250-50mcg Diskus IH SCH (09:12)
[2018-10-11] MEDS: MethylPREDNISolone 40 mg Vial IV SCH (09:14)
[2018-10-11] MEDS: Azithromycin 500 MG in Sodium Chloride 0.9% 250 ML IVPB SCH (09:14)
--- NOTE | 2018-10-11 10:54 | CP.PCM.PN ---
Subjective - Date & Time of Evaluation Date of Evaluation: 10/11/18 Time of Evaluation: 10:54 - Subjective Subjective: NO CHEST PAINS/SOB COUGH RESOLVED AMBULATES WITHOUT DYSPNEA Objective - Vital Signs/Intake and Output Vital Signs (last 24 hours): Temp Pulse Resp BP Pulse Ox 98.8 F 85 17 136/84 93 L 10/11/18 08:00 10/11/18 08:00 10/11/18 08:00 10/11/18 08:00 10/11/18 08:00 Intake and Output: 10/11/18 10/11/18 06:59 18:59 Intake Total 320 Balance 320 - Medications Medications: Current Medications Acetylcysteine (Acetylcysteine 20%) 2 ml INH RBID [facility] Last Admin: 10/11/18 07:48 Dose: 2 ml Albuterol/Ipratropium (Duoneb 3 Mg/0.5 Mg (3 Ml) Ud) 3 ml IH RQ4 [facility] Last Admin: 10/11/18 07:48 Dose: 3 ml Famotidine (Pepcid) 20 mg PO DAILY [facility] Last Admin: 10/11/18 09:13 Dose: 20 mg Guaifenesin/Dextromethorphan (Robitussin Dm) 10 ml PO Q6 [facility] Last Admin: 10/11/18 09:13 Dose: 10 ml Heparin Sodium (Porcine) (Heparin) 5,000 units SC Q8 [facility]; Protocol Last Admin: 10/11/18 09:12 Dose: Not Given Azithromycin 500 mg/ Sodium (Chloride) 250 mls @ 250 mls/hr IVPB DAILY [facility]; Protocol Last Admin: 10/11/18 09:14 Dose: 250 mls/hr Ceftriaxone Sodium 1 gm/ (Sodium Chloride) 100 mls @ 100 mls/hr IVPB DAILY [facility]; Protocol Last Admin: 10/11/18 09:13 Dose: 100 mls/hr Levothyroxine Sodium (Synthroid) 75 mcg PO DAILY@0630 [facility] Last Admin: 10/11/18 06:07 Dose: 75 mcg Methylprednisolone (Solu-Medrol) 40 mg IV DAILY [facility] Last Admin: 10/11/18 09:14 Dose: 40 mg Montelukast Sodium (Singulair) 10 mg PO HS [facility] Last Admin: 10/10/18 21:52 Dose: 10 mg Fluticasone/Salmeterol (Advair Diskus 250/50) 1 puff IH Q12 [facility] Last Admin: 10/11/18 09:12 Dose: 1 puff Ursodiol (Actigall) 300 mg PO TID [facility] Last Admin: 10/11/18 09:12 Dose: 300 mg - Labs Labs: 10/11/18 05:30 10/11/18 05:30 - Constitutional Appears: No Acute Distress - Head Exam Head Exam: ATRAUMATIC, NORMAL INSPECTION, NORMOCEPHALIC - Eye Exam Eye Exam: EOMI, Normal appearance, PERRL Pupil Exam: NORMAL ACCOMODATION, PERRL - ENT Exam ENT Exam: Mucous Membranes Moist, Normal Exam - Neck Exam Neck Exam: Full ROM, Normal Inspection. absent: Lymphadenopathy - Respiratory Exam Respiratory Exam: Clear to Ausculation Bilateral, NORMAL BREATHING PATTERN - Cardiovascular Exam Cardiovascular Exam: REGULAR RHYTHM, +S1, +S2. absent: Murmur - GI/Abdominal Exam GI & Abdominal Exam: Soft, Normal Bowel Sounds. absent: Tenderness - Rectal Exam Rectal Exam: NORMAL INSPECTION - Extremities Exam Extremities Exam: Full ROM, Normal Capillary Refill, Normal Inspection. absent: Joint Swelling, Pedal Edema - Back Exam Back Exam: NORMAL INSPECTION - Neurological Exam Neurological Exam: Alert, Awake, CN II-XII Intact, Normal Gait, Oriented x3 - Psychiatric Exam Psychiatric exam: Normal Affect, Normal Mood - Skin Skin Exam: Dry, Intact, Normal Color, Warm Assessment and Plan - Assessment and Plan (Free Text) Assessment: ASTHMA-STABLE SEPSIS RESOLVED Plan: OK TO DISCHARGE FROM THE PULMONARY VIEW POINT CONTINUE MEDROL,ANTIBIOTICS,BREO AND SINGULAIR WILL SIGN OFF CASE AND SEE AGAIN AT YOUR REQUEST
[2018-10-11 11:18] VITALS: O2SAT 95
[2018-10-11] MEDS ORDERED: Albuterol 0.083% Inhal Sol (2.5 mg/3 mL) UD IH PRN (13:15)
[2018-10-11] MEDS ORDERED: Patient's Own Med (Levalbuterol Tartrate [Xopenex Hfa] 2 PUFF) IH PRN (13:15)
[2018-10-11 13:42] VITALS: BP 146/82; PULSE 95; RESP 22
--- NOTE | 2018-10-11 20:04 | CP.PCM.DIS ---
Provider - Provider Date of Admission: 10/06/18 09:37 Attending physician: Perry Hernandez MD Consults: 10/07/18 10:39 Pulmonology Consult Routine Comment: Consulting Provider: Tomas Khan I Consulting Physician: Tomas Khan I Reason for Consult: Asthma exacerbation Time Spent in preparation of Discharge (in minutes): 30 Diagnosis - Discharge Diagnosis (1) Asthma exacerbation Status: Acute (2) Tachycardia Status: Acute (3) Hypothyroidism Status: Acute Hospital Course - Lab Results Lab Results: Micro Results 10/06/18 10:30 Blood Blood Culture - Final NO GROWTH AFTER 5 DAYS 10/06/18 10:30 Blood Gram Stain - Final TEST NOT PERFORMED 10/06/18 10:15 Blood Blood Culture - Final NO GROWTH AFTER 5 DAYS 10/06/18 10:15 Blood Gram Stain - Final TEST NOT PERFORMED 10/08/18 14:47 Sputum Gram Stain - Final 10/08/18 14:47 Sputum Sputum Culture - Final Pseudomonas Aeruginosa 10/06/18 08:13 Naris MRSA Culture (Admit) - Final MRSA NOT DETECTED Most Recent Lab Values WBC 16.2 K/uL (4.8-10.8) H 10/11/18 05:30 RBC 4.28 Mil/uL (3.80-5.20) 10/11/18 05:30 Hgb 12.6 g/dL (12.0-16.0) 10/11/18 05:30 Hct 39.2 % (34.0-47.0) 10/11/18 05:30 MCV 91.5 fl (81.0-99.0) 10/11/18 05:30 MCH 29.5 pg (27.0-31.0) 10/11/18 05:30 MCHC 32.3 g/dL (33.0-37.0) L 10/11/18 05:30 RDW 14.5 % (11.5-14.5) 10/11/18 05:30 Plt Count 334 K/uL (130-400) 10/11/18 05:30 MPV 8.2 fl (7.2-11.7) 10/10/18 05:40 Neut % (Auto) 78.4 % (50.0-75.0) H 10/10/18 05:40 Lymph % (Auto) 17.2 % (20.0-40.0) L 10/10/18 05:40 [place] % (Auto) 4.3 % (0.0-10.0) 10/10/18 05:40 Eos % (Auto) 0.0 % (0.0-4.0) 10/10/18 05:40 Baso % (Auto) 0.1 % (0.0-2.0) 10/10/18 05:40 Neut # (Auto) 12.6 K/uL (1.8-7.0) H 10/10/18 05:40 Lymph # (Auto) 2.8 K/uL (1.0-4.3) 10/10/18 05:40 [place] # (Auto) 0.7 K/uL (0.0-0.8) 10/10/18 05:40 Eos # (Auto) 0.0 K/uL (0.0-0.7) 10/10/18 05:40 Baso # (Auto) 0.0 K/uL (0.0-0.2) 10/10/18 05:40 pO2 31 mm/Hg (30-55) 10/06/18 09:31 VBG pH 7.46 (7.32-7.43) H 10/06/18 09:31 VBG pCO2 36 mmHg (40-60) L 10/06/18 09:31 VBG HCO3 25.4 mmol/L 10/06/18 09:31 VBG Total CO2 26.7 mmol/L (22-28) 10/06/18 09:31 VBG O2 Sat (Calc) 60.2 % (40-65) 10/06/18 09:31 VBG Base Excess 1.9 mmol/L (0.0-2.0) 10/06/18 09:31 VBG Potassium 2.7 mmol/L (3.6-5.2) L 10/06/18 09:31 Sodium 139.0 mmol/L (132-148) 10/06/18 09:31 Chloride 106.0 mmol/L (98-107) 10/06/18 09:31 Glucose 123 mg/dL (65-105) H 10/06/18 09:31 Lactate 2.3 mmol/L (0.7-2.1) H 10/06/18 09:31 FiO2 70.0 % 10/06/18 09:31 Sodium 140 mmol/l (132-148) 10/11/18 05:30 Potassium 4.1 MMOL/L (3.6-5.0) 10/11/18 05:30 Chloride 97 mmol/L (98-107) L 10/11/18 05:30 Carbon Dioxide 32 mmol/L (22-30) H 10/11/18 05:30 Anion Gap 15 (10-20) 10/11/18 05:30 BUN 19 mg/dl (7-17) H 10/11/18 05:30 Creatinine 0.8 mg/dl (0.7-1.2) 10/11/18 05:30 Est GFR ( Amer) > 60 10/11/18 05:30 Est GFR (Non-Af Amer) > 60 10/11/18 05:30 Random Glucose 89 mg/dL (65-105) 10/11/18 05:30 Lactic Acid 1.2 MMOL/L (0.7-2.1) 10/07/18 04:20 Calcium 9.2 mg/dL (8.4-10.2) 10/11/18 05:30 Phosphorus 3.9 mg/dl (2.5-4.5) 10/08/18 04:20 Magnesium 2.2 MG/DL (1.6-2.3) 10/08/18 04:20 Total Bilirubin 0.7 mg/dl (0.2-1.3) 10/11/18 05:30 AST 27 U/L (14-36) 10/11/18 05:30 ALT 30 U/L (9-52) 10/11/18 05:30 Alkaline Phosphatase 81 U/L (38-126) 10/11/18 05:30 Troponin I < 0.0120 ng/mL (0.00-0.120) 10/06/18 18:15 Total Protein 6.5 G/DL (6.3-8.2) 10/11/18 05:30 Albumin 3.6 g/dL (3.5-5.0) 10/11/18 05:30 Globulin 2.9 gm/dL (2.2-3.9) 10/11/18 05:30 Albumin/Globulin Ratio 1.2 (1.0-2.1) 10/11/18 05:30 Venous Blood Potassium 2.7 mmol/L (3.6-5.2) L 10/06/18 09:31 IgE 131 kU/L (<nn=549) H 10/06/18 18:15 Influenza Typ A,B (EIA) Negative for flu a/b (NEGATIVE) 10/06/18 10:20 Aspergillus Antigen Not detected (Not Detected) 10/06/18 18:15 Aspergillus Index Value 0.12 (<0.50) 10/06/18 18:15 - Hospital Course Hospital Course: This is a 58 y/o female admitted for exacerbation of asthma despite being on nebulizers, and prednisone, She progressively worsened and had SOB with light activity. She was started on IV solumderol and neb treatment. Dr Khan was called for consult and was admitted to ICU due to SOB and tachycardia. IV solumderol was tapered. She was started on IV antibiotics but on theh day of dsicharge her sputum was positive for Pseudomonas sensitive to Cipro. She claims to have allergy to Cipro but not to Levaquin. She has improived otherwise. She was snet home on Levaquin daily and was advised to take Prednisone starteing at 40 mg then taper slowly. She will have a repeat sputum C and S in 2 weeks. She was discharged in stable condition. Discharge Exam - Head Exam Head Exam: NORMAL INSPECTION - Eye Exam Eye Exam: Normal appearance - Respiratory Exam Respiratory Exam: Clear to PA & Lateral - Cardiovascular Exam Cardiovascular Exam: REGULAR RHYTHM - GI/Abdominal Exam GI & Abdominal Exam: Normal Bowel Sounds - Neurological Exam Neurological exam: Alert, CN II-XII Intact, Oriented x3 Discharge Plan - Follow Up Plan Condition: FAIR Disposition: HOME/ ROUTINE Instructions: Pneumonia in Adults, Inhaled Corticosteroid Medicines, Asthma (DC), Sepsis (DC) Additional Instructions: follow up in 1 to 2 weeks
[2018-10-11] MEDS ORDERED: Omega-3-Acid Ethyl Esters 1 GM Cap PO SCH (21:00)
[2018-10-12] MEDS ORDERED: Levothyroxine 75 MCG TAB PO SCH (06:30)
--- NOTE | 2018-10-14 12:31 | PQF ---
PROVIDER RESPONSE TEXT: Provider was unable to determine a response for this query. REVIEWER QUERY TEXT: Asthma Specificity and Type Acute Asthma Exacerbation is documented in the Medical Record. Please specify the type and severity of asthma and indicate if this is associated with exacerbation or status asthmaticus if in agreement with the dx.; versus Asthma ruled out? Such as: -- Mild intermittent -- Mild persistent -- Moderate persistent -- Severe persistent -- Other, please specify H and P: blank regarding current diagnoses ER:Respiratory: Positive for: Rhonchi, Wheezing, Respiratory Distress (mild) Impression: Asthma attack, Failure of outpatient treatment, Pneumonia, Sepsis 10/06/18 11:46 Blood pressure dropped to 70/40, responded to IV fluid bolus 30 ml/kg to 102/60.Will a dd d-dimer and admit to ICU as Code sepsis 10/06 Critical Care : PMHx of Asthma, Diverticulitis, Gastritis, Hiatal Hernia, Hyperthyroidism, Hypothyroidism, Pancreatitis and Hepatitis (autoimmune) Chest: Positive for: Accessory Muscle Use, Wheezes, Decreased Breath Sounds. (1) Asthma attack Current Visit: Yes Status: Acute Priority: High (2) Pneumonia Current Visit: Yes Status: Acute Priority: High (3) Sepsis Current Visit: Yes Status: Acute Priority: High (4) Respiratory distress Current Visit: Yes Status: Acute Priority: High 10/07 Critical Care; .Acute Asthma Exacerbation with Tracheobronchitis 2.Lactic acidosis 2?hypoxemia The patient's Clinical Indicators include: -- Query created by: Brittney Salas on 10/07/2018 12:11 PM Electronically signed by: Kirk Hernández 10/14/2018 10:52 AM
--- NOTE | 2018-10-14 12:31 | PQF ---
PROVIDER RESPONSE TEXT: Hypokalemia. REVIEWER QUERY TEXT: Medication Correlation for Diagnosis Your help is needed in capturing diagnoses for the corresponding medications ordered. Please clarify in the documentation diagnoses for the following medication(s). Medications:IV Potassium Chloride Serum K: 2.9->3.9->4.1 The patient's Clinical Indicators include: --- Query created by: Brittney Salas on 10/07/2018 12:01 PM Electronically signed by: Kirk Hernández 10/14/2018 10:52 AM
--- NOTE | 2018-10-14 12:31 | PQF ---
PROVIDER RESPONSE TEXT: Bacterial pnuemonia due to psuedomonas. REVIEWER QUERY TEXT: Pneumonia Specificity Pneumonia is documented in the Medical Record. Please specify the type of pneumonia and the causative organism (includes probable or suspected) if in agreement with the dx. versus Pneumonia ruled out Such as: Type: -- Aspiration pneumonia (please also specify the aspirate) - Please indicate if the aspiration is postprocedure -- Bacterial (please document suspected or probable organism) -- Bronchopneumonia (please document suspected or probable organism) -- Interstitial pneumonia -- Organizing pneumonia / BOOP -- Pneumonia with influenza, esther flu, or H1N1 flu -- RSV -- Viral -- Other, please specify ER: not includes: Respiratory: Positive for: Rhonchi, Wheezing, Respiratory Distress (mild) Impression: Asthma attack, Failure of outpatient treatment, Pneumonia, Sepsis 10/06 Critical Care note includes: Chest: Positive for: Accessory Muscle Use, Wheezes, Decreased Kay th Sounds. (1) Asthma attack Current Visit: Yes Status: Acute Priority: High (2) Pneumonia Current Visit: Yes Status: Acute Priority: High (3) Sepsis Current Visit: Yes Status: Acute Priority: High (4) Respiratory distress Current Visit: Yes Status: Acute Priority: High 10/07 Critical Care: Impression::Acute Asthma Exacerbation with Tracheobronchitis 2.Lactic acidosis 2?h ypoxemia The patient's Clinical Indicators include: -- Query created by: Brittney Salas on 10/07/2018 12:18 PM Electronically signed by: Kirk Hernández 10/14/2018 10:52 AM
== END 2018-10-11 13:48 | disposition home or self-care (01) | DRG 871 ==
LOC: H.ER 09:20 → H.ERHOLD 09:37 → H.ICU/CCU 12:46
PROVIDERS: ADMIT Family Medicine; ATTEND Family Medicine
PROC: 3E0F7GC Introduction of Other Therapeutic Substance into Respiratory Tract, Via Natural or Artificial Opening (ICD-10-PCS; principal; 2018-10-06)
DX: A41.9 Sepsis, unspecified organism (principal); J15.1 Pneumonia due to Pseudomonas; J45.901 Unspecified asthma with (acute) exacerbation; T17.990A Other foreign object in respiratory tract, part unspecified in causing asphyxiation, initial encounter; E87.6 Hypokalemia; E03.9 Hypothyroidism, unspecified; Z90.49 Acquired absence of other specified parts of digestive tract; E05.90 Thyrotoxicosis, unspecified without thyrotoxic crisis or storm; K29.70 Gastritis, unspecified, without bleeding; K44.9 Diaphragmatic hernia without obstruction or gangrene; Z79.899 Other long term (current) drug therapy; I95.9 Hypotension, unspecified; Z88.1 Allergy status to other antibiotic agents; Z91.040 Latex allergy status; R00.0 Tachycardia, unspecified; R06.03 Acute respiratory distress

== ENCOUNTER 2019-02-04 10:21 | Inpatient (IN) | payer BC, OTHER ==
[2019-02-04] MEDS ORDERED: Albuterol-Ipratrop 3 mg / 0.5 (3 ml) UD ONE (10:23)
[2019-02-04] MEDS ORDERED: Sodium Chloride 0.9% 1,000 ML IV STA (10:24)
[2019-02-04] MEDS ORDERED: Albuterol-Ipratrop 3 mg / 0.5 (3 ml) UD IH STA ×3 (10:24→10:26)
--- NOTE | 2019-02-04 10:42 | ED PDOC ---
HPI: Asthma Time Seen by Provider: 02/04/19 10:24 History Per: Patient Onset/Duration Of Symptoms: Hrs (1) Current Symptoms Are (Timing): Still Present Associated Symptoms: Dyspnea, Cough. denies: Fever Precipitating Factors: Other ([place] fumes) Severity: Moderate Additional Complaint(s): SOB, wheezing and nonproductive cough x 1 hr. Pt exposed to paint fumes which p recipitated SOB. Assoc with nonproductive cough. Denies fever. Recently tx'ed with Zithromax for URI. No improvement with Inhaler x 2 Past Medical History Vital Signs: Last Vital Signs Temp 97 F L 02/04/19 10:27 Pulse 118 H 02/04/19 10:27 Resp BP 140/86 02/04/19 10:27 Pulse Ox 97 02/04/19 10:27 - Medical History PMH: Asthma, Diverticulitis, Gastritis, Hepatitis (autoimmune), Hiatal Hernia, Hyperthyroidism, Hypothyroidism, Pancreatitis Denies: HIV, Chronic Kidney Disease - Surgical History Surgical History: Cholecystectomy (laparoscopic cholesystectomy), Tonsillectomy - Family History Family History: States: Unknown Family Hx - Immunization History Hx Tetanus Toxoid Vaccination: No - Home Medications Home Medications: Ambulatory Orders Medication Instructions Recorded Montelukast Sodium [Singulair] 10 mg PO HS 08/25/14 Levothyroxine [Synthroid] 75 mcg PO DAILY 08/21/15 Albuterol 0.083% [Albuterol 0.083% 3 ml IH Q8 PRN 08/14/16 Inhal Ana (2.5 mg/3 ml) UD] Icosapent Ethyl [Vascepa] 1 gm PO Q12 08/14/16 Fluticasone/Vilanterol 200/25 1 puff IH DAILY 10/06/18 [Breo Ellipta 200-25 Mcg INH] Levalbuterol Tartrate [Xopenex Hfa] 2 puff IH Q6 PRN 10/06/18 Ursodiol [Actigall] 300 mg PO TID 10/06/18 predniSONE [Prednisone] 40 mg PO ASDIR 10/06/18 - Allergies Allergies/Adverse Reactions: Allergies Allergy/AdvReac Type Severity Reaction Status Date / Time ciprofloxacin [From Cipro] Allergy URTICARIA Verified 07/11/18 21:54 ciprofloxacin HCl Allergy URTICARIA Verified 07/11/18 21:54 [From Cipro] latex Allergy SHORTNESS Verified 07/11/18 21:54 OF BREATH Review of Systems ROS Statement: Except As Marked, All Systems Reviewed And Found Negative Respiratory: Positive for: Cough, Shortness of Breath, Wheezing Physical Exam - Reviewed Nursing Documentation Reviewed: Yes Vital Signs Reviewed: Yes - Physical Exam Appears: Positive for: Non-toxic, No Acute Distress Head Exam: Positive for: ATRAUMATIC, NORMAL INSPECTION, NORMOCEPHALIC Skin: Positive for: Normal Color, Warm, DRY Eye Exam: Positive for: EOMI, Normal appearance, PERRL ENT: Positive for: Normal ENT Inspection Neck: Positive for: Normal, Painless ROM Cardiovascular/Chest: Positive for: Regular Rate, Rhythm Respiratory: Positive for: Wheezing, Respiratory Distress (Mod) Gastrointestinal/Abdominal: Positive for: Normal Exam, Soft Back: Positive for: Normal Inspection Extremity: Positive for: Normal ROM Neurological/Psych: Positive for: Awake, Alert, Normal Tone. Negative for: Motor/Sensory Deficits - ECG O2 Sat by Pulse Oximetry: 97 Disposition - Clinical Impression Clinical Impression: Status asthmaticus - Patient ED Disposition Is Patient to be Admitted: Yes - Disposition Disposition Time: 10:44 Condition: FAIR - Pt Status Changed To: Hospital Disposition Of: Inpatient - Admit Certification Admit to Inpatient:: After my assessment, the patient will require ho spitalization for at least two midnights. This is because of the severity of symptoms shown, intensity of services needed, and/or the medical risk in this patient being treated as an outpatient. - POA Present On Arrival: None
[2019-02-04 10:54] LABS: BASO % 0.5 % (0.0-2.0); EOS # 0.3 K/uL (0.0-0.7); EOS % 2.9 % (0.0-4.0); LYMPH # 4.2 K/uL (1.0-4.3); LYMPH % 43.6 % (20.0-40.0); MEAN CELL VOLUME 86.8 fl (81.0-99.0); MEAN CORPUSCULAR HEMOGLOBIN 29.1 pg (27.0-31.0); MEAN CORPUSCULAR HGB CONC 33.6 g/dL (33.0-37.0); MEAN PLATELET VOLUME 7.9 fl (7.2-11.7); MONO # 0.6 K/uL (0.0-0.8); MONO % 6.7 % (0.0-10.0); NEUT # 4.5 K/uL (1.8-7.0); NEUT % 46.3 % (50.0-75.0); NRBC % 0.1 % (0.0-0.0); RBC 5.09 Mil/uL (3.80-5.20); RED CELL DISTRIBUTION WIDTH 14.5 % (11.5-14.5); WHITE BLOOD COUNT 9.7 K/uL (4.8-10.8)
[2019-02-04 10:55] LABS: ALB/GLOB RATIO 1.2 (1.0-2.1); ALBUMIN 4.5 g/dL (3.5-5.0); ALT/SGPT 45 U/L (9-52); AST/SGOT 39 U/L (14-36); BLOOD UREA NITROGEN 10 mg/dl (7-17); CALCIUM 9.1 mg/dL (8.4-10.2); GFR NON-AFRICAN AMERICAN > 60
[2019-02-04 10:57] LABS: HEMOGLOBIN 14.8 g/dL (12.0-16.0)
--- NOTE | 2019-02-04 12:07 | RAD ---
Date of service: 02/04/2019 HISTORY: Cough COMPARISON: 10/06/2018. FINDINGS: LUNGS: The lungs are well inflated and clear. PLEURA: No pleural effusions or pneumothorax. CARDIOVASCULAR: The heart is normal in size. There are aortic atherosclerotic calcifications present. OSSEOUS STRUCTURES: Within normal limits for the patient's age. VISUALIZED UPPER ABDOMEN: Normal. OTHER FINDINGS: None. IMPRESSION: No active pulmonary disease.
--- NOTE | 2019-02-04 16:03 | CARD ---
APPROVED REPORT Date of service: 02/04/2019 EKG Measurement Heart [id number] <Conclusion> Normal sinus rhythm Non specific T-wave changes Abnormal ECG
--- NOTE | 2019-02-04 16:56 | CP.PCM.CON ---
History of Present Illness - History of Present Illness History of Present Illness: 58 YR OLD FEMALE ADMITTED WITH ACUTE ASTHMA DUE TO PAINT EXPOSURE AT WORK.SHE INDICATES THAT SHE FELT WELL WHEN SHE ARRIVED AT WORK TODAY BUT WAS EXPOSED TO PAINT FUMES HER DEPT WAS BEING PAINTED AND BECAME DYSPNEIC.SHE WAS SEEN IN THE ER,TREATED AND ADMITTED FOR ACUTE ASTHMA. HX OF THYROID DZ Past Patient History - Infectious Disease Hx of Infectious Diseases: None - Past Medical History & Family History Past Medical History?: Yes - Past Social History Smoking Status: Never Smoked - CARDIAC Hx Cardiac Disorders: No - PULMONARY Hx Respiratory Disorders: Yes - NEUROLOGICAL Hx Neurological Disorder: No - HEENT Hx HEENT Problems: No Other/Comment: Uses glasses for reading. - RENAL Hx Chronic Kidney Disease: No - ENDOCRINE/METABOLIC Hx Endocrine Disorders: Yes - HEMATOLOGICAL/ONCOLOGICAL Hx Human Immunodeficiency Virus (HIV): No - INTEGUMENTARY Hx Dermatological Problems: No - MUSCULOSKELETAL/RHEUMATOLOGICAL Hx Musculoskeletal Disorders: No Hx Falls: No - GASTROINTESTINAL Hx Diverticulitis: Yes Hx Gastritis: Yes Hx Pancreatitis: Yes - GENITOURINARY/GYNECOLOGICAL Hx Genitourinary Disorders: No - PSYCHIATRIC Hx Psychophysiologic Disorder: No Hx Substance Use: No - SURGICAL HISTORY Hx Cholecystectomy: Yes (laparoscopic cholesystectomy) Hx Tonsillectomy: Yes - ANESTHESIA Hx Anesthesia: Yes Hx Anesthesia Reactions: No Hx Malignant Hyperthermia: No Meds Allergies/Adverse Reactions: Allergies Allergy/AdvReac Type Severity Reaction Status Date / Time ciprofloxacin [From Cipro] Allergy URTICARIA Verified 07/11/18 21:54 ciprofloxacin HCl Allergy URTICARIA Verified 07/11/18 21:54 [From Cipro] latex Allergy SHORTNESS Verified 07/11/18 21:54 OF BREATH - Medications Medications: Current Medications Sodium Chloride (Sodium Chloride 0.9%) 1,000 mls @ 100 mls/hr IV .Q10H STA Stop: 02/04/19 20:23 Last Admin: 02/04/19 10:39 Dose: 100 mls/hr Methylprednisolone 80 mg/ (Sodium Chloride) 50 mls @ 100 mls/hr IVPB Q8 [facility] Levalbuterol HCl (Xopenex) 1.25 mg INH RQ8 [facility] Levothyroxine Sodium (Synthroid) 75 mcg PO DAILY [facility] Montelukast Sodium (Singulair) 10 mg PO HS [facility]DEN Fluticasone/Salmeterol (Advair Diskus 250/50) 1 puff IH Q12 HAYDEN Ursodiol (Actigall) 300 mg PO TID [facility]DEN Physical Exam - Constitutional Appears: In Acute Distress - Head Exam Head Exam: ATRAUMATIC, NORMAL INSPECTION, NORMOCEPHALIC - Eye Exam Eye Exam: EOMI, Normal appearance, PERRL Pupil Exam: NORMAL ACCOMODATION, PERRL - ENT Exam ENT Exam: Mucous Membranes Moist, Normal Exam - Neck Exam Neck exam: Positive for: Normal Inspection - Respiratory Exam Respiratory Exam: Decreased Breath Sounds, Prolonged Expiratory Phase, Wheezes, Respiratory Distress, NORMAL BREATHING PATTERN - Cardiovascular Exam Cardiovascular Exam: REGULAR RHYTHM - GI/Abdominal Exam GI & Abdominal Exam: Normal Bowel Sounds, Soft. absent: Tenderness - Rectal Exam Rectal Exam: NORMAL INSPECTION - Extremities Exam Extremities exam: Positive for: normal inspection - Back Exam Back exam: NORMAL INSPECTION - Neurological Exam Neurological exam: Alert, CN II-XII Intact, Normal Gait, Oriented x3, Reflexes Normal - Psychiatric Exam Psychiatric exam: Normal Affect, Normal Mood - Skin Skin Exam: Dry, Intact, Normal Color, Warm Results - Vital Signs Recent Vital Signs: Last Vital Signs Temp 98.2 F 02/04/19 16:47 Pulse 88 02/04/19 16:47 Resp 18 02/04/19 16:47 BP 133/83 02/04/19 16:47 Pulse Ox 100 02/04/19 16:47 - Labs Result Diagrams: 02/04/19 10:30 02/04/19 10:30 Labs: Laboratory Results - last 24 hr 02/04/19 02/04/19 02/04/19 10:30 10:30 10:30 WBC 9.7 RBC 5.09 Hgb 14.8 D Hct 44.1 MCV 86.8 D MCH 29.1 MCHC 33.6 RDW 14.5 Plt Count 352 MPV 7.9 Neut % (Auto) 46.3 L Lymph % (Auto) 43.6 H [place] % (Auto) 6.7 Eos % (Auto) 2.9 Baso % (Auto) 0.5 Neut # (Auto) 4.5 Lymph # (Auto) 4.2 [place] # (Auto) 0.6 Eos # (Auto) 0.3 Baso # (Auto) 0.0 Sodium 141 Potassium 3.4 L Chloride 103 Carbon Dioxide 27 Anion Gap 14 BUN 10 Creatinine 0.6 L Est GFR ( Amer) > 60 Est GFR (Non-Af Amer) > 60 Random Glucose 100 Calcium 9.1 Total Bilirubin 0.6 AST 39 H D ALT 45 Alkaline Phosphatase 115 Total Protein 8.2 Albumin 4.5 Globulin 3.7 Albumin/Globulin Ratio 1.2 Influenza Typ A,B (EIA) Negative for flu a/b Assessment & Plan - Assessment and Plan (Free Text) Assessment: ACUTE ASTHMA--EXACERBATED BY PAINT EXPOSURE HYPOTHYROIDISM HYPOKALEMIA Plan: SEE ORDERS - Date & Time Date: 02/04/19 Time: 16:58
[2019-02-04] MEDS ORDERED: methylPREDNISolone 80 MG in Sodium Chloride 0.9% 50 ML IVPB SCH (17:00)
[2019-02-04] MEDS: Potassium Chloride 20 mEq ER Tab PO SCH (19:07)
[2019-02-04] MEDS: Levothyroxine 75 MCG TAB PO SCH (19:09)
[2019-02-04] MEDS: FLUTICASONE PROPION/SALMETEROL 113-14 IH SCH (21:32)
[2019-02-05] MEDS: Levalbuterol 1.25 MG/3 ML Inhal Soln UD INH SCH ×2 (00:12→07:28)
[2019-02-05] MEDS: Levothyroxine 75 MCG TAB PO SCH (07:01)
[2019-02-05 08:19] VITALS: RESP 18; O2SAT 99
[2019-02-05] MEDS: FLUTICASONE PROPION/SALMETEROL 113-14 IH SCH (09:22)
[2019-02-05] MEDS: Potassium Chloride 20 mEq ER Tab PO SCH (09:22)
[2019-02-05 12:13] VITALS: BP 121/73; PULSE 75; TEMP 98.1
--- NOTE | 2019-02-16 07:07 | CP.PCM.HP ---
History of Present Illness - History of Present Illness History of Present Illness: This is a 58 y/o female admitted last night for acute exacerbation of asthma after exposure to fumes. She has been on Breo pump and has been doing very well till this exposure. She had recent attacks and in fact was hospitalized for 3 days few months ago for the same exacerbation. She was started on IV steroids last night and nebulizer treatment. She responded well and feels better today. Medical Hx: Asthma gastritis pancreatitis hypothyroidism autoimmune hepatitis? Present on Admission - Present on Admission Any Indicators Present on Admission: No History of DVT/PE: No History of Uncontrolled Diabetes: No Urinary Catheter: No Decubitus Ulcer Present: No Review of Systems - Respiratory Respiratory: Dyspnea, Wheezing - Gastrointestinal Gastrointestinal: Abdominal Pain Past Patient History - Infectious Disease Hx of Infectious Diseases: None - Past Medical History & Family History Past Medical History?: Yes - Past Social History Smoking Status: Never Smoked - CARDIAC Hx Cardiac Disorders: No - PULMONARY Hx Respiratory Disorders: Yes Hx Asthma: Yes - NEUROLOGICAL Hx Neurological Disorder: No - HEENT Hx HEENT Problems: No Other/Comment: Uses glasses for reading. - RENAL Hx Chronic Kidney Disease: No - ENDOCRINE/METABOLIC Hx Endocrine Disorders: Yes Hx Hypothyroidism: Yes - HEMATOLOGICAL/ONCOLOGICAL Hx Blood Disorders: No Hx AIDS: No Hx Human Immunodeficiency Virus (HIV): No - INTEGUMENTARY Hx Dermatological Problems: No - MUSCULOSKELETAL/RHEUMATOLOGICAL Hx Musculoskeletal Disorders: No Hx Falls: No - GASTROINTESTINAL Hx Gastrointestinal Disorders: Yes Hx Diverticulitis: Yes Hx Gastritis: Yes Hx Pancreatitis: Yes - GENITOURINARY/GYNECOLOGICAL Hx Genitourinary Disorders: No - PSYCHIATRIC Hx Psychophysiologic Disorder: No Hx Substance Use: No - SURGICAL HISTORY Hx Surgeries: Yes Hx Cholecystectomy: Yes (laparoscopic cholesystectomy) Hx Tonsillectomy: Yes - ANESTHESIA Hx Anesthesia: Yes Hx Anesthesia Reactions: No Hx Malignant Hyperthermia: No Has any member of the family had a problem w/ anesthesia?: No Meds Home Medications: Home Medication List Medication Instructions Recorded Confirmed Type Fluticasone/Vilanterol 100/25 1 puff INH DAILY #30 puff 02/05/19 Rx [Breo Ellipta 100-25 MCG INH] Allergies/Adverse Reactions: Allergies Allergy/AdvReac Type Severity Reaction Status Date / Time ciprofloxacin [From Cipro] Allergy URTICARIA Verified 07/11/18 21:54 ciprofloxacin HCl Allergy URTICARIA Verified 07/11/18 21:54 [From Cipro] latex Allergy SHORTNESS Verified 07/11/18 21:54 OF BREATH Physical Exam - Head Exam Head Exam: NORMAL INSPECTION - Eye Exam Eye Exam: Normal appearance - ENT Exam ENT Exam: Mucous Membranes Moist - Respiratory Exam Respiratory Exam: Decreased Breath Sounds, Wheezes - Cardiovascular Exam Cardiovascular Exam: REGULAR RHYTHM - GI/Abdominal Exam GI & Abdominal Exam: Normal Bowel Sounds - Neurological Exam Neurological exam: CN II-XII Intact - Psychiatric Exam Psychiatric exam: Normal Mood Results - Vital Signs Recent Vital Signs: Last Vital Signs Temp 98.1 F 02/05/19 12:13 Pulse 75 02/05/19 12:13 Resp 18 02/05/19 12:13 BP 121/73 02/05/19 12:13 Pulse Ox 99 02/05/19 12:13 - Labs Result Diagrams: 02/04/19 10:30 02/04/19 10:30 Assessment & Plan (1) Asthma exacerbation Status: Acute (2) Hypothyroidism Status: Acute - Assessment and Plan (Free Text) Plan: taper off iv steroids start on po prednisone continue Breo cont all meds medicall stable will DC after dose of IV steroids follow up in 1 week in my office.
== END 2019-02-05 12:27 | disposition home or self-care (01) | DRG 203 ==
LOC: SUPCPDRO 10:21 → H.ER 10:21 → H.ERHOLD 10:44 → H.TEL 16:32
PROVIDERS: ADMIT Family Medicine; ATTEND Family Medicine
DX: J45.902 Unspecified asthma with status asthmaticus (principal); E87.6 Hypokalemia; E03.9 Hypothyroidism, unspecified; K29.70 Gastritis, unspecified, without bleeding